=== PATIENT | female | born 1985 | race Caucasian/White ===

== ENCOUNTER 2021-02-04 16:03 | Emergency (ER) | payer MEDICAID ==
[2021-02-04 16:12] VITALS: BP 126/81
[2021-02-04] MEDS ORDERED: BENZONATATE 100 MG CAPSULE PO STA (16:38)
--- NOTE | 2021-02-04 16:43 | ED Physician Documentation ---
PD HPI DYSPNEA - Stated complaint Stated Complaint: CHEST PX/DIZZINESS - Chief complaint Chief Complaint: Resp - History obtained from History obtained from: Patient - Additional information Additional information: 35-year-old woman who is not immunized against coronavirus became sick about 6 days ago with severe muscle aches in her legs and subsequently developed a minimally productive cough and progressive shortness of breath with sharp pleuritic chest pain. She got an online nebulized solution from Dr. Alban Andres, a web search suggest this is probably nebulized hydrogen peroxide. She was exposed to Covid by some friends. Review of Systems Ten Systems: 10 systems reviewed and negative Constitutional: reports: Chills, Myalgias, Fatigue Cardiac: reports: Chest pain / pressure Respiratory: reports: Dyspnea, Cough PD PAST MEDICAL HISTORY - Present Medications Home Medications: Ambulatory Orders Medication Instructions Recorded Confirmed Benzonatate [Tessalon] 200 mg PO QID PRN #20 cap 02/04/21 - Allergies Allergies/Adverse Reactions: Allergies Allergy/AdvReac Type Severity Reaction Status Date / Time No Known Drug Allergies Allergy Verified 02/04/21 16:13 PD ED PE NORMAL - Vitals Vital signs reviewed: Yes - General General: Alert and oriented X 3, Other (Frequent coughing) - Neck Neck: Supple, no meningeal sign, No bony TTP - Cardiac Cardiac: RRR, No murmur - Respiratory Respiratory: No respiratory distress, Clear bilaterally - Abdomen Abdomen: Normal bowel sounds, Soft, Non tender - Back Back: No CVA TTP, No spinal TTP - Derm Derm: Normal color, Warm and dry - Extremities Extremities: No edema, No calf tenderness / cord - Neuro Neuro: Alert and oriented X 3, Normal speech Results - Vitals Vitals: Vital Signs - 24 hr 02/04/21 16:08 Temperature 37.1 C Heart Rate 110 H Respiratory 18 Rate Blood Pressure 126/81 H O2 Saturation 94 Oxygen O2 Source Room air - Rads (name of study) 1v cxr Radiology: EMP read contemporaneously (Bibasilar atelectasis versus infiltrate) PD MEDICAL DECISION MAKING - ED course ED course: 35-year-old woman presents with viral syndrome and productive cough, this is consistent with coronavirus and she was so advised. We are testing for same. PE is considered but given the overall evolution of her symptoms this is most consistent with a viral syndrome affecting her respiratory system. Departure - Departure Disposition: 01 Home, Self Care Clinical Impression: Viral syndrome Condition: Good Record reviewed to determine appropriate education?: Yes Instructions: ED Viral Syndrome Prescriptions: Benzonatate [Tessalon] 200 mg PO QID PRN #20 cap PRN Reason: Cough Comments: As discussed, given your symptoms it is very likely that you have coronavirus. You have a Covid test pending. You need to self quarantine until the result is done and negative. Do not leave your house. Do not get near anybody. The results should be done in 48 to 72 hours. We will call with a positive result, the fastest way to get a negative result for confirmation though is to go to the hospital website at [email or web address], click on the my [facility] tab and sign up for the patient portal. If you do test positive for Covid, you can return during business hours for consideration for antibody therapy. Someone else needs to go to the pharmacy for you, to roll picker the prescription. While there I recommend picking up a pulse oximeter and keeping an eye on your oxygen levels. If they are persistently below 90 to 92% this would mandate return for reevaluation. If any friends or family get sick and would like to have a Covid test done, but do not have signs or symptoms that would necessitate being hospitalized, there are multiple local options for Covid testing. [facility] keeps an updated list of testing and vaccination options at: [email or web address]. Forms: Activity restrictions
--- NOTE | 2021-02-04 17:17 | XRAY Report ---
PROCEDURE: Chest 1 View X-Ray INDICATIONS: cough TECHNIQUE: One view of the chest was acquired. COMPARISON: None FINDINGS: Surgical changes and devices: None. Lungs and pleura: Bibasilar atelectasis and or infiltrate accentuated by low lung volumes. Mediastinum: Mediastinal contours appear normal. Heart size is normal. Bones and chest wall: No suspicious bony lesions. Overlying soft tissues appear unremarkable. IMPRESSION: Basilar atelectasis and or infiltrate accentuated by low lung volumes Reviewed by: Parker Howell MD on 02/04/2021 4:15 PM [place] Approved by: Parker Howell MD on 02/04/2021 4:15 PM [place] Station ID: [id number]
== END 2021-02-04 17:39 | disposition home or self-care (01) ==
LOC: ED 16:03
DX: U07.1 COVID-19 (principal)
CPT/HCPCS: 71045; 87635; 99283; 99284; A9270

== ENCOUNTER 2021-02-06 17:23 | Inpatient (IN) | payer MEDICAID ==
--- NOTE | 2021-02-06 17:59 | XRAY Report ---
PROCEDURE: Chest 1 View X-Ray INDICATIONS: dyspnea TECHNIQUE: One view of the chest was acquired. COMPARISON: 02/04/2021 FINDINGS: Low lung volumes accentuate pulmonary interstitium. There is bibasilar atelectasis and or infiltrate which in combination with low lung volumes obscures the heart size appear mild vascular congestion no [place] as well. There is blunting the left costophrenic angle. IMPRESSION: Worsening bibasilar atelectasis and or infiltrate greater on the left. Low lung volumes obscures heart size and accentuates the pulmonary interstitium. Probable underlying mild vascular congestion present as well. Reviewed by: Parker Howell MD on 02/06/2021 4:58 PM [place] Approved by: Parker Howell MD on 02/06/2021 4:58 PM [place] Station ID: [id number]
[2021-02-06] MEDS ORDERED: SODIUM CHLORIDE 0.9% 1,000 ML IV STA (18:01)
[2021-02-06] MEDS ORDERED: KETOROLAC 30 MG/ML VIAL IVP STA (18:01)
[2021-02-06] MEDS ORDERED: DEXAMETHASONE 10 MG/ML VIAL IVP STA (18:01)
[2021-02-06] MEDS ORDERED: BENZONATATE 100 MG CAPSULE PO STA (18:02)
--- NOTE | 2021-02-06 18:02 | ED Physician Documentation ---
PD HPI CHEST PAIN - Stated complaint Stated Complaint: SOA,CHEST PX - Chief complaint Chief Complaint: Resp - History obtained from History obtained from: Patient - Additional information Additional information: 35-year-old woman seen by me on Friday for fairly typical Covid symptoms and a positive exposure to Covid. A outpatient swab is still pending but in the interim she did get a prescription for benzonatate which was helping and bought a pulse oximeter as recommended by us, and at home she became worsening with regard to dyspnea on exertion and noted pulse oximetry is as low as 84% on room air at home. Review of Systems Ten Systems: 10 systems reviewed and negative Constitutional: reports: Chills, Myalgias, Fatigue Nose: reports: Rhinorrhea / runny nose Cardiac: denies: Chest pain / pressure Respiratory: reports: Dyspnea, Cough PD PAST MEDICAL HISTORY - Present Medications Home Medications: Ambulatory Orders Medication Instructions Recorded Confirmed Benzonatate [Tessalon] 200 mg PO QID PRN #20 cap 02/04/21 02/06/21 - Allergies Allergies/Adverse Reactions: Allergies Allergy/AdvReac Type Severity Reaction Status Date / Time codeine Allergy Hives Verified 02/06/21 17:34 - Social History Does the pt smoke?: No Smoking Status: Never smoker PD ED PE NORMAL - Vitals Vital signs reviewed: Yes - General General: Alert and oriented X 3 - HEENT HEENT: PERRL, EOMI - Neck Neck: Supple, no meningeal sign, No bony TTP - Cardiac Cardiac: RRR, No murmur - Respiratory Respiratory: Other (Occasional bronchitic coughing, rhonchorous at the bases, modestly tachypneic) - Abdomen Abdomen: Non tender - Back Back: No CVA TTP, No spinal TTP - Derm Derm: Normal color, Warm and dry - Extremities Extremities: No edema, No calf tenderness / cord - Neuro Neuro: Alert and oriented X 3, Normal speech Results - Vitals Vitals: Vital Signs - 24 hr 02/06/21 02/06/21 02/06/21 17:36 17:53 18:23 Temperature 37.3 C Heart Rate 122 H 113 H 94 Respiratory 24 21 28 H Rate Blood Pressure 123/78 120/86 H 114/86 H O2 Saturation 89 L 91 L 93 02/06/21 02/06/21 02/06/21 19:00 19:30 20:00 Temperature Heart Rate 103 H 100 97 Respiratory 20 20 21 Rate Blood Pressure 126/65 128/92 H 122/88 H O2 Saturation 94 97 98 Oxygen O2 Source Nasal cannula Oxygen Flow Rate 4 - EKG (time done) 1802 Rate: Rate (enter#) (110) Rhythm: Sinus tachycardia [place]: Normal Intervals: Normal GA QRS: Normal Ischemia: Non specific changes - Labs Labs: Laboratory Tests 02/06/21 02/06/21 02/06/21 18:02 18:12 18:12 WBC 4.7 L RBC 4.50 Hgb 14.1 Hct 39.8 MCV 88.4 MCH 31.3 H MCHC 35.4 RDW 12.2 Plt Count 187 MPV 10.0 Neut # (Auto) 2.9 Lymph # (Auto) 1.4 L [place] # (Auto) 0.4 Eos # (Auto) 0.0 Baso # (Auto) 0.0 Absolute Nucleated RBC 0.00 Nucleated RBC % 0.0 D-Dimer 605.4 H Sodium Potassium Chloride Carbon Dioxide Anion Gap BUN Creatinine Estimated GFR (MDRD) Glucose Calcium Nasal Adenovirus (PCR) NOT DETECTED Nasal B. parapertussis DNA (PCR) NOT DETECTED Nasal Coronavir 229E PCR NOT DETECTED Nasal Coronavir HKU1 PCR NOT DETECTED Nasal Coronavir NL63 PCR NOT DETECTED Nasal Coronavir OC43 PCR NOT DETECTED Nasal Enterovir/Rhinovir PCR NOT DETECTED Nasal Influenza B PCR NOT DETECTED Nasal Influenza A PCR NOT DETECTED Nasal Parainfluen 1 PCR NOT DETECTED Nasal Parainfluen 2 PCR NOT DETECTED Nasal Parainfluen 3 PCR NOT DETECTED Nasal Parainfluen 4 PCR NOT DETECTED Nasal RSV (PCR) NOT DETECTED Nasal B.pertussis DNA PCR NOT DETECTED Nasal C.pneumoniae (PCR) NOT DETECTED Junior Human Metapneumo PCR NOT DETECTED Nasal M.pneumoniae (PCR) NOT DETECTED Nasal SARS-CoV-2 (PCR) DETECTED A 02/06/21 18:12 WBC RBC Hgb Hct MCV MCH MCHC RDW Plt Count MPV Neut # (Auto) Lymph # (Auto) [place] # (Auto) Eos # (Auto) Baso # (Auto) Absolute Nucleated RBC Nucleated RBC % D-Dimer Sodium 130 L Potassium 3.1 L Chloride 93 L Carbon Dioxide 24 Anion Gap 13.0 BUN 9 Creatinine 0.4 Estimated GFR (MDRD) 182 Glucose 248 H Calcium 8.7 Nasal Adenovirus (PCR) Nasal B. parapertussis DNA (PCR) Nasal Coronavir 229E PCR Nasal Coronavir HKU1 PCR Nasal Coronavir NL63 PCR Nasal Coronavir OC43 PCR Nasal Enterovir/Rhinovir PCR Nasal Influenza B PCR Nasal Influenza A PCR Nasal Parainfluen 1 PCR Nasal Parainfluen 2 PCR Nasal Parainfluen 3 PCR Nasal Parainfluen 4 PCR Nasal RSV (PCR) Nasal B.pertussis DNA PCR Nasal C.pneumoniae (PCR) Junior Human Metapneumo PCR Nasal M.pneumoniae (PCR) Nasal SARS-CoV-2 (PCR) - Rads (name of study) 1v cxr Radiology: EMP read contemporaneously ( chest x-ray shows worsening bibasilar atelectasis or infiltrate ) PD MEDICAL DECISION MAKING - ED course ED course: 35-year-old woman with already suspected Covid but no outpatient results yet has become hypoxic in the last couple of days and presents with mild respiratory distress and oxygen requirement. Covid positivity presumed and improved here and will be admitted for further evaluation and treatment.Spoke with Dr. Kaur for admission at 8:27 PM Departure - Departure Disposition: 66 [facility] DC/Xfer Clinical Impression: COVID-19, Hypoxemia Condition: Serious
[2021-02-06 18:19] LABS: HGB - HEMOGLOBIN 14.1 g/dL (12.0-16.0); MEAN CORPUSCULAR VOLUME 88.4 fL (81.0-99.0); MONOCYTES % (AUTO) 7.6 %; RED CELL DISTRIBUTION WIDTH 12.2 % (12.0-15.0)
[2021-02-06 18:28] LABS: CALCIUM 8.7 mg/dL (8.5-10.3); CREATININE 0.4 mg/dL (0.4-1.0); POTASSIUM 3.1 mmol/L (3.5-5.0)
[2021-02-06 18:31] LABS: BASOPHILS % (AUTO) 0.4 %; HCT - HEMATOCRIT 39.8 % (37.0-47.0); LYMPHOCYTES # (AUTO) 1.4 10^3/uL (1.5-3.5); MEAN CORPUSCULAR HEMOGLOBIN 31.3 pg (27.0-31.0); MEAN CORPUSCULAR HGB CONC 35.4 g/dL (32.0-36.0); MONOCYTES # (AUTO) 0.4 10^3/uL (0.0-1.0); NEUTROPHILS # (AUTO) 2.9 10^3/uL (1.5-6.6); NEUTROPHILS % (AUTO) 61.4 %; PLT - PLATELET COUNT 187 10^3/uL (130-450); WHITE BLOOD COUNT 4.7 x10^3/uL (4.8-10.8)
[2021-02-06] MEDS ORDERED: ENOXAPARIN 80 MG/0.8 ML SYRINGE SUBQ STA (18:46)
[2021-02-06 20:14] LABS: CORONAVIRUS 229E-RESP PCR NOT DETECTED; CORONAVIRUS HKU1-RESP PCR NOT DETECTED; CORONAVIRUS NL63-RESP PCR NOT DETECTED; CORONAVIRUS OC43-RESP PCR NOT DETECTED
[2021-02-06 20:15] LABS: B. PARAPERTUSSIS- RESP PCR PAN NOT DETECTED; B. PERTUSSIS- RESP PCR PANEL NOT DETECTED; C. PNEUMONIAE- RESP PCR PANEL NOT DETECTED; HUMAN METAPNEUMOVIRUS NOT DETECTED; INFLUENZA A- RESP PCR PANEL NOT DETECTED; INFLUENZA B - RESP PCR PANEL NOT DETECTED; M. PNEUMONIAE- RESP PCR PANEL NOT DETECTED; PARAINFLUENZA VIRUS 1 NOT DETECTED; PARAINFLUENZA VIRUS 2 NOT DETECTED; PARAINFLUENZA VIRUS 3 NOT DETECTED; PARAINFLUENZA VIRUS 4 NOT DETECTED; RHINOVIRUS/ENTEROVIRUS NOT DETECTED; RSV- RESP PCR PANEL NOT DETECTED; SARS-CoV-2 -RESP PCR PANEL DETECTED
[2021-02-06] MEDS ORDERED: ACETAMINOPHEN 325 MG TABLET PO PRN (20:49)
[2021-02-06] MEDS ORDERED: ONDANSETRON 4 MG/2 ML VIAL IVP PRN (20:49)
[2021-02-06 21:15] LABS: ALBUMIN 3.7 g/dL (3.2-5.5); BILIRUBIN,DIRECT 0.2 mg/dL (0.1-0.5); BILIRUBIN,TOTAL 0.9 mg/dL (0.2-1.0); TOTAL PROTEIN 7.2 g/dL (6.7-8.2)
--- NOTE | 2021-02-06 21:40 | HISTORY & PHYSICAL EXAMINATION ---
Chief Complaint - Chief Complaint Chief Complaint: SOB, O2 desaturation History of Present Illness - Admitted From Admitted From:: ED - History Obtained From History obtained from: ED provider, chart review and the patient - History of Present Illness HPI Comment/Other: This is a 35-year-old female with negative past medical history, she is unvaccinated for COVID. She had just decided to get covid vaccinated whenshe became exposed to Covid through a friend or someone at [employer]. She started to develop Covid symptoms over a week ago of myalgias, weakness and fatigue. She came to the ED 2 days ago with new shortness of breath and a cough as well as severe myalgias diffusely. She had a send out Covid swab done and was discharged home with a prescription for Tessalon Perles and instructions for isolation, which she did. Her parents are vaccinated and her mother was her caregiver. She did obtain an oximeter as was recommended and noticed today that her O2 sats became decreased to the 84% range. She came to the ED today with worsening cough, and new diarrhea. She was tachypneic. Chest x-ray shows bilateral fluffy infiltrates consistent with Covid pneumonia. Her oxygen saturation here is 88 to 89% on room air and she has been started on supplemental oxygen. She is being admitted to the Hospitalist service. 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 She does not smoke cigarettes, does not drink alcohol, does not use recreational drugs. - Substance History Use: Uses substance without health or social issues: NONE - POLST Patient has POLST: No Meds/Allgy - Home Medications Home Medications: Ambulatory Orders Medication Instructions Recorded Confirmed Benzonatate [Tessalon] 200 mg PO QID PRN #20 cap 02/04/21 02/06/21 - Allergies Allergies/Adverse Reactions: Allergies Allergy/AdvReac Type Severity Reaction Status Date / Time codeine Allergy Hives Verified 02/06/21 17:34 Review of Systems - Constitutional Constitutional: reports: Fatigue, Poor appetite - Respiratory Respiratory: reports: Cough, SOB with exertion - Gastrointestinal Gastrointestinal: reports: Diarrhea, Poor appetite - Musculoskeletal Musculoskeletal: reports: Muscle pain - All Other Systems All Other Systems: reports: Reviewed and negative Exam - Vital Signs Vital Signs: Vital Signs x48h Temp Pulse Resp BP Pulse Ox 02/06/21 21:30 97 21 123/93 H 92 02/06/21 21:00 97 27 H 112/83 H 99 02/06/21 20:30 99 23 117/86 H 92 02/06/21 20:00 97 21 122/88 H 98 02/06/21 19:30 100 20 128/92 H 97 02/06/21 19:00 103 H 20 126/65 94 02/06/21 18:23 94 28 H 114/86 H 93 02/06/21 17:53 113 H 21 120/86 H 91 L 02/06/21 17:36 37.3 C 122 H 24 123/78 89 L - Physical Exam General Appearance: positive: No acute distress, Alert, Other (wearing O2 per n.c.) Eyes Bilateral: positive: Normal inspection, EOMI ENT: positive: ENT inspection nml, No signs of dehydration Neck: positive: Nml inspection Respiratory: positive: Rhonchi (up 3/4 bilaterally) Cardiovascular: positive: Regular rate & rhythm, No murmur, Other (Distant heart sounds, large pendulous breasts) Abdomen: positive: Non-tender, Other (Hypoactive bowel sounds) Skin: positive: Warm, Dry Extremities: positive: Non-tender, No pedal edema Neurologic/Psychiatric: positive: Oriented x3 (Non-focal) Conclusion/Plan - Problem List (1) Acute respiratory failure with hypoxia Conclusion/Plan: Continue with supplemental oxygen keeping sats greater than 90%. Treat the underlying problem which appears to be Covid pneumonia (2) COVID-19 Conclusion/Plan: As per (+) PCR test, and she is neutropenic. Myalgias and fatigue were her initial symptoms starting 01/29/21, she said, then she developed a cough and shortness of breath and today diarrhea started. Will order Remdesivir, Decadron, Eliquis (therapeutic dose, as per latest recommendatios), Tessalon Perles as needed, Imodium as needed and order a bland diet. (3) Pneumonia due to COVID-19 virus Conclusion/Plan: Will start Remdesivir for 5-day course. Will continue with iv Decadron for up to a 10-day course. We will treat symptomatically with Mucinex and order IS Isolation ordered. Follow CBC daily (4) Hyponatremia Conclusion/Plan: This is most likely hypovolemic hyponatremia given her viral syndrome and poor appetite. Begin gentle IV saline hydration. Follow BMP daily (5) Hypokalemia Conclusion/Plan: Replace. Follow BMP daily (6) Obesity (BMI 30-39.9) Conclusion/Plan: Obesity has been documented as a risk factor for poor Covid outcomes - Lab Results Fish Bones: 02/06/21 18:12 02/06/21 18:12
[2021-02-06] MEDS: APIXABAN 5 MG TABLET PO SCH (22:16)
[2021-02-06] MEDS ORDERED: POTASSIUM CHLORIDE 20 MEQ TABLET PO ONE (22:31)
[2021-02-06] MEDS: BENZONATATE 100 MG CAPSULE PO PRN (22:33)
[2021-02-06] MEDS ORDERED: SODIUM CHLORIDE 0.9% 1,000 ML IV SCH (23:00)
[2021-02-06] MEDS: SODIUM CHLORIDE FLUSH 0.9% 10 ML SYRINGE IVP PRN (23:00)
[2021-02-06] MEDS ORDERED: NS W/20 MEQ KCL 1,000 ML IV SCH (23:00)
[2021-02-07] MEDS: SODIUM CHLORIDE FLUSH 0.9% 10 ML SYRINGE IVP SCH ×3 (03:21→17:34)
[2021-02-07] MEDS: BENZONATATE 100 MG CAPSULE PO PRN ×2 (05:13→17:34)
[2021-02-07] MEDS: PANTOPRAZOLE 40 MG TABLET PO SCH (06:32)
[2021-02-07 06:34] LABS: BASOPHILS % (AUTO) 0.2 %; HCT - HEMATOCRIT 39.3 % (37.0-47.0); HGB - HEMOGLOBIN 13.7 g/dL (12.0-16.0); LYMPHOCYTES % (AUTO) 26.4 %; MEAN CORPUSCULAR HEMOGLOBIN 30.9 pg (27.0-31.0); MEAN CORPUSCULAR HGB CONC 34.9 g/dL (32.0-36.0); MEAN CORPUSCULAR VOLUME 88.7 fL (81.0-99.0); MEAN PLATELET VOLUME 9.9 fL (7.9-10.8); MONOCYTES % (AUTO) 6.5 %; NEUTROPHILS % (AUTO) 66.2 %; PLT - PLATELET COUNT 208 10^3/uL (130-450); RED BLOOD COUNT 4.43 10^6/uL (4.20-5.40); RED CELL DISTRIBUTION WIDTH 12.3 % (12.0-15.0); WHITE BLOOD COUNT 4.6 x10^3/uL (4.8-10.8)
[2021-02-07 06:41] LABS: ABNORMAL LYMPHS % (MANUAL) 0 %
[2021-02-07 06:46] LABS: CALCIUM 8.4 mg/dL (8.5-10.3); CREATININE 0.5 mg/dL (0.4-1.0); MAGNESIUM 2.1 mg/dL (1.7-2.8)
[2021-02-07 07:38] LABS: BAND NEUTROPHILS % (MANUAL) 6 %; LYMPHOCYTES # (MANUAL) 1.2 10^3/uL (1.5-3.5); LYMPHOCYTES % (MANUAL) 26 %; MONOCYTES # (MANUAL) 0.1 10^3/uL (0.0-1.0); NEUTROPHILS # (MANUAL) 3.3 10^3/uL (1.5-6.6)
[2021-02-07 07:39] LABS: DIFFERENTIAL COMMENT MANUAL DIFFERENTIAL; PLATELET ESTIMATE, MANUAL NORMAL (130-450,000) (NORMAL); PLATELET MORPHOLOGY NORMAL APPEARANCE (NORMAL); RBC MORPHOLOGY (MULTIPLE) NORMAL APPEARANCE (NORMAL); WBC MORPHOLOGY (MULTIPLE) NORMAL APPEARANCE (NORMAL)
[2021-02-07] MEDS ORDERED: LOPERAMIDE 2 MG CAPSULE PO PRN (09:00)
[2021-02-07] MEDS: DEXAMETHASONE 4 MG/ML VIAL IVP SCH (09:30)
[2021-02-07] MEDS: guaiFENesin 600 MG TABLET PO SCH ×2 (09:30→21:17)
[2021-02-07] MEDS: APIXABAN 5 MG TABLET PO SCH ×2 (09:30→21:17)
[2021-02-07] MEDS ORDERED: REMDESIVIR 100MG VIAL 200 MG in SODIUM CHLORIDE 0.9% 250 ML IV ONE (09:30)
--- NOTE | 2021-02-07 10:36 | PHARMACY PROGRESS NOTE ---
- Best Possible Medication History Admit Date and Time: 02/06/212041 Processed by: Nursing Medication History completed: Yes Med list confirmed by nursing As the person ultimately responsible for medication therapy, providers are able to order a medication from an existing home medication list in [facility] via the "Reconcile Routine" prior to Confirmation of that medication by it support specialist. Such practice is discouraged except when the physician, in their clinical judgment, deems that a medical need exists for a medication without regard to previous use.
--- NOTE | 2021-02-07 11:39 | PROVIDER PROGRESS NOTE ---
Assessment/Plan - Problem List (1) Acute respiratory failure with hypoxia Assessment/Plan: 02/07 after Patient needed HHFNC 35, pt report she feel much better. pt has no acute respiratory distress now. Call pharmacy to have Remdesivir for pt, continue Decadron, Eliquis, continue HHFNC, supplement of O2 for pt. (2) Pneumonia due to COVID-19 virus Conclusion/Plan: pt has positive Covid test, with acute Respiratory failure with hypoxia, add Remdesivir for pt, continue Decadron, Eliquis, continue HHFNC and supplement of O2 for pt. (3) Hyperglycemia induced by steroid Conclusion/Plan: glucose is 295, pt has no hx of diabetes, it is likely caused by Decadron, will add slide scale, glucose check, pt has hx of obesity, will check A1C as well. (4) Hyponatremia Conclusion/Plan: Na is 132, improved, Follow BMP daily (5) Hypokalemia Conclusion/Plan: resolved (6) Obesity (BMI 30-39.9) Conclusion/Plan: Obesity has been documented as a risk factor for poor Covid outcomes, also check A1C - Current Meds Current Meds: Current Medications Generic Name Dose Route Start Last Admin Trade Name Freq PRN Reason Stop Dose Admin Acetaminophen 650 mg 02/06/21 20:49 02/07/21 06:31 Acetaminophen 325 Mg Tablet PO 650 mg Q4HR PRN Administration Pain or Fever > 38C (100.4F) Benzonatate 200 mg 02/06/21 21:31 02/07/21 05:13 Benzonatate 100 Mg Capsule PO 200 mg QID PRN Administration Cough Dexamethasone 6 mg 02/07/21 09:00 02/07/21 09:30 Dexamethasone 4 Mg/Ml Vial IVP 6 mg DAILY AP Administration Guaifenesin 600 mg 02/07/21 09:00 02/07/21 09:30 Guaifenesin 600 Mg Tablet PO 600 mg BID AP Administration Pantoprazole Sodium 40 mg 02/07/21 07:00 02/07/21 06:32 Pantoprazole 40 Mg Tablet PO 40 mg QDAC AP Administration Sodium Chloride 10 ml 02/06/21 20:49 02/06/21 23:00 Sodium Chloride Flush 0.9% 10 Ml Syringe IVP 10 ml PRN PRN Administration NEEDED PER PROVIDER ORDERS Sodium Chloride 10 ml 02/07/21 01:00 02/07/21 09:31 Sodium Chloride Flush 0.9% 10 Ml Syringe IVP 10 ml 0100,0900,1700 [facility] Administration - Lab Result Fish Bone Diagrams: 02/07/21 06:12 02/07/21 06:12 - Additional Planning My Orders: My Active Orders 02/07/21 Pharmacy Consult [CONS] Routine 02/07/21 11:32 Blood Glucose Checks - Eating [RC] 0800,1200,1700,2100 Initiate Hypoglycemia Protocol [RC] .protocol 02/07/21 12:00 Insulin Aspart [NovoLOG] 2 - 10 unit SUBQ 0800,1200,1700,2100 02/08/21 05:00 HEMOGLOBIN A1c% [CHEM] DAILYLAB 02/08/21 09:00 Remdesivir 100Mg Vial [Veklury] 100 mg Sodium Chloride 0.9% 100Ml [Normal Saline 0.9% 100Ml] 100 ml IV DAILY Subjective - Subjective Patient Reports: Feeling Better, Resting Comfortably Objective Vital Signs: Vital Signs - 24 hr 02/06/21 02/06/21 02/06/21 17:36 17:53 18:23 Temperature 37.3 C Heart Rate 122 H 113 H 94 Heart Rate [ Brachial] Respiratory 24 21 28 H Rate Blood Pressure 123/78 120/86 H 114/86 H Blood Pressure [Left Brachial artery] O2 Saturation 89 L 91 L 93 02/06/21 02/06/21 02/06/21 19:00 19:30 20:00 Temperature Heart Rate 103 H 100 97 Heart Rate [ Brachial] Respiratory 20 20 21 Rate Blood Pressure 126/65 128/92 H 122/88 H Blood Pressure [Left Brachial artery] O2 Saturation 94 97 98 02/06/21 02/06/21 02/06/21 20:30 21:00 21:30 Temperature Heart Rate 99 97 97 Heart Rate [ Brachial] Respiratory 23 27 H 21 Rate Blood Pressure 117/86 H 112/83 H 123/93 H Blood Pressure [Left Brachial artery] O2 Saturation 92 99 92 02/06/21 02/07/21 02/07/21 21:57 00:28 01:04 Temperature 36.6 C 37.4 C Heart Rate 96 Heart Rate [ 99 95 Brachial] Respiratory 20 18 18 Rate Blood Pressure Blood Pressure 110/71 114/78 [Left Brachial artery] O2 Saturation 91 L 90 L 92 02/07/21 02/07/21 05:00 08:46 Temperature 36.8 C 37.1 C Heart Rate Heart Rate [ 92 95 Brachial] Respiratory 24 18 Rate Blood Pressure Blood Pressure 120/80 110/79 [Left Brachial artery] O2 Saturation 89 L 92 Oxygen O2 Source HHFNC Oxygen Flow Rate 4 I&O (Last 24 Hrs): Intake and Output Totals x24h 02/05/21 02/06/21 02/07/21 23:59 23:59 23:59 Intake Total 1000 500 Balance 1000 500 General: Alert, Oriented x3, Cooperative, No acute distress HEENT: Atraumatic, PERRLA Neck: Supple Lymphatic: no adenopathy Neuro: Alert, Non Focal, Oriented Times 3 Cardiovascular: Regular rate, Normal S1, Normal S2 Respiratory: Chest non-tender, No respiratory distress Abdomen: Normal bowel sounds, Soft, No tenderness Extremities: Normal pulses - Results Results: Laboratory Results WBC 4.6 x10^3/uL (4.8-10.8) L 02/07/21 06:12 RBC 4.43 10^6/uL (4.20-5.40) 02/07/21 06:12 Hgb 13.7 g/dL (12.0-16.0) 02/07/21 06:12 Hct 39.3 % (37.0-47.0) 02/07/21 06:12 MCV 88.7 fL (81.0-99.0) 02/07/21 06:12 MCH 30.9 pg (27.0-31.0) 02/07/21 06:12 MCHC 34.9 g/dL (32.0-36.0) 02/07/21 06:12 RDW 12.3 % (12.0-15.0) 02/07/21 06:12 Plt Count 208 10^3/uL (130-450) 02/07/21 06:12 MPV 9.9 fL (7.9-10.8) 02/07/21 06:12 Neut # (Auto) Not Reportable 02/07/21 06:12 Lymph # (Auto) Not Reportable 02/07/21 06:12 [place] # (Auto) Not Reportable 02/07/21 06:12 Eos # (Auto) Not Reportable 02/07/21 06:12 Baso # (Auto) Not Reportable 02/07/21 06:12 Absolute Nucleated RBC Not Reportable 02/07/21 06:12 Total Counted 100 02/07/21 06:12 Band Neuts % (Manual) 6 % (0-10) 02/07/21 06:12 Abnorm Lymph % (Manual) 0 % 02/07/21 06:12 Nucleated RBC % Not Reportable 02/07/21 06:12 Neutrophils # (Manual) 3.3 10^3/uL (1.5-6.6) 02/07/21 06:12 Lymphocytes # (Manual) 1.2 10^3/uL (1.5-3.5) L 02/07/21 06:12 Monocytes # (Manual) 0.1 10^3/uL (0.0-1.0) 02/07/21 06:12 Eosinophils # (Manual) 0.0 10^3/uL (0-0.7) 02/07/21 06:12 Basophils # (Manual) 0.0 10^3/uL (0-0.1) 02/07/21 06:12 Differential Comment MANUAL DIFFERENTIAL 02/07/21 06:12 WBC Morphology NORMAL APPEARANCE (NORMAL) 02/07/21 06:12 Platelet Estimate NORMAL (130-450,000) (NORMAL) 02/07/21 06:12 Platelet Morphology NORMAL APPEARANCE (NORMAL) 02/07/21 06:12 RBC Morph Micro Appear NORMAL APPEARANCE (NORMAL) 02/07/21 06:12 D-Dimer 605.4 ng/mL (200.0-255.0) H 02/06/21 18:12 Sodium 132 mmol/L (135-145) L 02/07/21 06:12 Potassium 4.0 mmol/L (3.5-5.0) 02/07/21 06:12 Chloride 97 mmol/L (101-111) L 02/07/21 06:12 Carbon Dioxide 22 mmol/L (21-32) 02/07/21 06:12 Anion Gap 13.0 (6-13) 02/07/21 06:12 BUN 17 mg/dL (6-20) 02/07/21 06:12 Creatinine 0.5 mg/dL (0.4-1.0) 02/07/21 06:12 Estimated GFR (MDRD) 140 (>89) 02/07/21 06:12 Glucose 295 mg/dL (70-100) H 02/07/21 06:12 Calcium 8.4 mg/dL (8.5-10.3) L 02/07/21 06:12 Magnesium 2.1 mg/dL (1.7-2.8) 02/07/21 06:12 Total Bilirubin 0.9 mg/dL (0.2-1.0) 02/06/21 18:12 Direct Bilirubin 0.2 mg/dL (0.1-0.5) 02/06/21 18:12 AST 54 IU/L (10-42) H 02/06/21 18:12 ALT 50 IU/L (10-60) 02/06/21 18:12 Alkaline Phosphatase 59 IU/L (42-121) 02/06/21 18:12 Total Protein 7.2 g/dL (6.7-8.2) 02/06/21 18:12 Albumin 3.7 g/dL (3.2-5.5) 02/06/21 18:12 Globulin 3.5 g/dL (2.1-4.2) 02/06/21 18:12 Nasal Adenovirus (PCR) NOT DETECTED 02/06/21 18:02 Nasal B. parapertussis DNA (PCR) NOT DETECTED 02/06/21 18:02 Nasal Coronavir 229E PCR NOT DETECTED 02/06/21 18:02 Nasal Coronavir HKU1 PCR NOT DETECTED 02/06/21 18:02 Nasal Coronavir NL63 PCR NOT DETECTED 02/06/21 18:02 Nasal Coronavir OC43 PCR NOT DETECTED 02/06/21 18:02 Nasal Enterovir/Rhinovir PCR NOT DETECTED 02/06/21 18:02 Nasal Influenza B PCR NOT DETECTED 02/06/21 18:02 Nasal Influenza A PCR NOT DETECTED 02/06/21 18:02 Nasal Parainfluen 1 PCR NOT DETECTED 02/06/21 18:02 Nasal Parainfluen 2 PCR NOT DETECTED 02/06/21 18:02 Nasal Parainfluen 3 PCR NOT DETECTED 02/06/21 18:02 Nasal Parainfluen 4 PCR NOT DETECTED 02/06/21 18:02 Nasal RSV (PCR) NOT DETECTED 02/06/21 18:02 Nasal B.pertussis DNA PCR NOT DETECTED 02/06/21 18:02 Nasal C.pneumoniae (PCR) NOT DETECTED 02/06/21 18:02 Junior Human Metapneumo PCR NOT DETECTED 02/06/21 18:02 Nasal M.pneumoniae (PCR) NOT DETECTED 02/06/21 18:02 Nasal SARS-CoV-2 (PCR) DETECTED A 02/06/21 18:02 ABX Reporting Has patient been on IV antibiotics over the past 48 hours?: Yes Current Medications - Current Medications Current Medications: Active Medications Acetaminophen (Acetaminophen 325 Mg Tablet) 650 mg PO Q4HR PRN PRN Reason: Pain or Fever > 38C (100.4F) Last Admin: 02/07/21 06:31 Dose: 650 mg Documented by: Apixaban (Apixaban 5 Mg Tablet) 5 mg PO BID [facility] Benzonatate (Benzonatate 100 Mg Capsule) 200 mg PO QID PRN PRN Reason: Cough Last Admin: 02/07/21 05:13 Dose: 200 mg Documented by: Dexamethasone (Dexamethasone 4 Mg/Ml Vial) 6 mg IVP DAILY [facility] Last Admin: 02/07/21 09:30 Dose: 6 mg Documented by: Guaifenesin (Guaifenesin 600 Mg Tablet) 600 mg PO BID [facility] Last Admin: 02/07/21 09:30 Dose: 600 mg Documented by: Remdesivir 100 mg/ Sodium (Chloride) 100 mls @ 200 mls/hr IV DAILY [facility] Stop: 02/11/21 09:29 Insulin Aspart (Insulin Aspart 300 Unit/3 Ml Pen) 2 - 10 unit SUBQ 0800,1200,1700,2100 [facility]; Protocol Loperamide HCl (Loperamide 2 Mg Capsule) 2 mg PO BID PRN PRN Reason: Diarrhea Ondansetron HCl (Ondansetron 4 Mg/2 Ml Vial) 4 mg IVP Q6HR PRN PRN Reason: Nausea / Vomiting Pantoprazole Sodium (Pantoprazole 40 Mg Tablet) 40 mg PO QDAC [facility] Last Admin: 02/07/21 06:32 Dose: 40 mg Documented by: Sodium Chloride (Sodium Chloride Flush 0.9% 10 Ml Syringe) 10 ml IVP PRN PRN PRN Reason: NEEDED PER PROVIDER ORDERS Last Admin: 02/06/21 23:00 Dose: 10 ml Documented by: Sodium Chloride (Sodium Chloride Flush 0.9% 10 Ml Syringe) 10 ml IVP 0100,0900,1700 [facility] Last Admin: 02/07/21 09:31 Dose: 10 ml Documented by:
[2021-02-07] MEDS: INSULIN ASPART 300 UNIT/3 ML PEN SUBQ SCH ×3 (12:37→21:16)
[2021-02-08] MEDS: BENZONATATE 100 MG CAPSULE PO PRN (00:16)
[2021-02-08] MEDS: SODIUM CHLORIDE FLUSH 0.9% 10 ML SYRINGE IVP SCH ×3 (00:16→17:15)
[2021-02-08 06:19] LABS: BASOPHILS % (AUTO) 0.1 %; EOSINOPHILS # (AUTO) 0.2 10^3/uL (0.0-0.7); EOSINOPHILS % (AUTO) 2.3 %; HCT - HEMATOCRIT 36.6 % (37.0-47.0); HGB - HEMOGLOBIN 12.7 g/dL (12.0-16.0); LYMPHOCYTES # (AUTO) 1.8 10^3/uL (1.5-3.5); LYMPHOCYTES % (AUTO) 25.6 %; MEAN CORPUSCULAR HGB CONC 34.7 g/dL (32.0-36.0); MEAN CORPUSCULAR VOLUME 89.3 fL (81.0-99.0); MEAN PLATELET VOLUME 9.7 fL (7.9-10.8); MONOCYTES # (AUTO) 0.5 10^3/uL (0.0-1.0); MONOCYTES % (AUTO) 7.3 %; NEUTROPHILS # (AUTO) 4.4 10^3/uL (1.5-6.6); NEUTROPHILS % (AUTO) 63.5 %; PLT - PLATELET COUNT 257 10^3/uL (130-450); RED CELL DISTRIBUTION WIDTH 12.3 % (12.0-15.0); WHITE BLOOD COUNT 6.9 x10^3/uL (4.8-10.8)
[2021-02-08] MEDS: PANTOPRAZOLE 40 MG TABLET PO SCH (06:19)
[2021-02-08 06:28] LABS: CALCIUM 8.3 mg/dL (8.5-10.3); CREATININE 0.4 mg/dL (0.4-1.0); MAGNESIUM 2.2 mg/dL (1.7-2.8); POTASSIUM 3.9 mmol/L (3.5-5.0)
[2021-02-08] MEDS: REMDESIVIR 100MG VIAL 100 MG in SODIUM CHLORIDE 0.9% 100ML 100 ML IV SCH (08:54)
[2021-02-08] MEDS: INSULIN ASPART 300 UNIT/3 ML PEN SUBQ SCH ×4 (08:56→21:27)
[2021-02-08] MEDS: DEXAMETHASONE 4 MG/ML VIAL IVP SCH (09:05)
[2021-02-08] MEDS: guaiFENesin 600 MG TABLET PO SCH ×2 (09:10→21:25)
[2021-02-08] MEDS: CHOLECALCIFEROL 25 MCG TABLET PO SCH (09:10)
[2021-02-08] MEDS: APIXABAN 5 MG TABLET PO SCH ×2 (09:10→21:25)
[2021-02-08 09:43] LABS: ESTIMATED AVERAGE GLUCOSE 237 mg/dL (70-100); HEMOGLOBIN A1c% 9.9 % (4.27-6.07)
--- NOTE | 2021-02-08 14:37 | PROVIDER PROGRESS NOTE ---
Assessment/Plan - Problem List (1) Acute respiratory failure with hypoxia Assessment/Plan: 02/08 stable, pt feel comfortable, no acute respiratory distress. pt had 93% O2 sats on 40 liter of HHFNC with 60% FiO2. continue the setting for HHFNC, continue Remdesivir, Decadron, Eliquis 02/07 after Patient needed HHFNC 35, pt report she feel much better. pt has no acute respiratory distress now. Call pharmacy to have Remdesivir for pt, continue Decadron, Eliquis, continue HHFNC, supplement of O2 for pt. (2) Pneumonia due to COVID-19 virus Conclusion/Plan: pt has positive Covid test, with acute Respiratory failure with hypoxia, add Remdesivir for pt, continue Decadron, Eliquis, continue HHFNC and supplement of O2 for pt. (3) diabetes with Hyperglycemia induced by steroid Conclusion/Plan: 02/08, unfortunately pt's A1C is 9.9, she was unknown she had diabetes. Now she is diabetes. pt still has hyperglycemia. increase Novolog for slide scale, add lantus on night, continue glucose check, slide scale, hypoglycemia protocol. glucose is 295, pt has no hx of diabetes, it is likely caused by Decadron, will add slide scale, glucose check, pt has hx of obesity, will check A1C as well. (4) Hyponatremia Conclusion/Plan: Na is 132, improved, Follow BMP daily (5) Hypokalemia Conclusion/Plan: resolved (6) Obesity (BMI 30-39.9) Conclusion/Plan: Obesity has been documented as a risk factor for poor Covid outcomes, also check A1C - Current Meds Current Meds: Current Medications Generic Name Dose Route Start Last Admin Trade Name Freq PRN Reason Stop Dose Admin Apixaban 5 mg 02/07/21 21:00 02/08/21 09:10 Apixaban 5 Mg Tablet PO 5 mg BID AP Administration Benzonatate 200 mg 02/06/21 21:31 02/08/21 00:16 Benzonatate 100 Mg Capsule PO 200 mg QID PRN Administration Cough Cholecalciferol 50 mcg 02/08/21 09:00 02/08/21 09:10 Cholecalciferol 25 Mcg Tablet PO 50 mcg DAILY AP Administration Dexamethasone 6 mg 02/07/21 09:00 02/08/21 09:05 Dexamethasone 4 Mg/Ml Vial IVP 6 mg DAILY AP Administration Guaifenesin 600 mg 02/07/21 09:00 02/08/21 09:10 Guaifenesin 600 Mg Tablet PO 600 mg BID AP Administration Remdesivir 100 mg/ Sodium 100 mls @ 200 mls/hr 02/08/21 09:00 02/08/21 10:06 Chloride IV 02/11/21 09:29 Infused DAILY AP Infusion Insulin Aspart 3 - 11 unit 02/08/21 08:00 02/08/21 11:54 Insulin Aspart 300 Unit/3 Ml Pen SUBQ 11 unit 0800,1200,1700,2100 AP Administration Protocol Loperamide HCl 2 mg 02/07/21 09:00 02/07/21 17:34 Loperamide 2 Mg Capsule PO 2 mg BID PRN Administration Diarrhea Pantoprazole Sodium 40 mg 02/07/21 07:00 02/08/21 06:19 Pantoprazole 40 Mg Tablet PO 40 mg QDAC AP Administration Sodium Chloride 10 ml 02/06/21 20:49 02/06/21 23:00 Sodium Chloride Flush 0.9% 10 Ml Syringe IVP 10 ml PRN PRN Administration NEEDED PER PROVIDER ORDERS Sodium Chloride 10 ml 02/07/21 01:00 02/08/21 09:10 Sodium Chloride Flush 0.9% 10 Ml Syringe IVP 10 ml 0100,0900,1700 AP Administration - Lab Result Fish Bone Diagrams: 02/08/21 06:10 02/08/21 06:10 - Additional Planning My Orders: My Active Orders 02/07/21 15:30 Ketorolac [Toradol] 10 mg PO Q6HR PRN 02/07/21 Dinner Regular Diet [DIET] 02/08/21 09:00 Cholecalciferol [Vitamin D3] 50 mcg PO DAILY Remdesivir 100Mg Vial [Veklury] 100 mg Sodium Chloride 0.9% 100Ml [Normal Saline 0.9% 100Ml] 100 ml IV DAILY Subjective - Subjective Patient Reports: Feeling Better, Resting Comfortably Objective Vital Signs: Vital Signs - 24 hr 02/07/21 02/07/21 02/08/21 16:34 21:00 00:10 Temperature 37.1 C 37.4 C 37.3 C Heart Rate [ 86 99 89 Brachial] Respiratory 25 H 22 18 Rate Blood Pressure 120/81 H 115/85 H 119/77 [Left Brachial artery] O2 Saturation 92 91 L 90 L 02/08/21 02/08/21 02/08/21 00:25 06:12 08:49 Temperature 37.1 C 36.7 C Heart Rate [ 85 73 Brachial] Respiratory 20 20 Rate Blood Pressure 104/71 104/69 [Left Brachial artery] O2 Saturation 92 92 94 02/08/21 12:31 Temperature 36.9 C Heart Rate [ 77 Brachial] Respiratory 20 Rate Blood Pressure 104/65 [Left Brachial artery] O2 Saturation 93 Oxygen O2 Source HHFNC Oxygen Flow Rate 4 I&O (Last 24 Hrs): Intake and Output Totals x24h 02/06/21 02/07/21 02/08/21 23:59 23:59 23:59 Intake Total 1000 2270 450 Balance 1000 2270 450 General: Alert, Oriented x3, Cooperative, No acute distress HEENT: Atraumatic Neck: Supple Lymphatic: no adenopathy Neuro: Alert, Non Focal, Oriented Times 3 Cardiovascular: Regular rate, Normal S1, Normal S2 Respiratory: Chest non-tender, No respiratory distress Abdomen: Normal bowel sounds, Soft Extremities: Normal pulses - Results Results: Laboratory Results WBC 6.9 x10^3/uL (4.8-10.8) 02/08/21 06:10 RBC 4.10 10^6/uL (4.20-5.40) L 02/08/21 06:10 Hgb 12.7 g/dL (12.0-16.0) 02/08/21 06:10 Hct 36.6 % (37.0-47.0) L 02/08/21 06:10 MCV 89.3 fL (81.0-99.0) 02/08/21 06:10 MCH 31.0 pg (27.0-31.0) 02/08/21 06:10 MCHC 34.7 g/dL (32.0-36.0) 02/08/21 06:10 RDW 12.3 % (12.0-15.0) 02/08/21 06:10 Plt Count 257 10^3/uL (130-450) 02/08/21 06:10 MPV 9.7 fL (7.9-10.8) 02/08/21 06:10 Neut # (Auto) 4.4 10^3/uL (1.5-6.6) 02/08/21 06:10 Lymph # (Auto) 1.8 10^3/uL (1.5-3.5) 02/08/21 06:10 [place] # (Auto) 0.5 10^3/uL (0.0-1.0) 02/08/21 06:10 Eos # (Auto) 0.2 10^3/uL (0.0-0.7) 02/08/21 06:10 Baso # (Auto) 0.0 10^3/uL (0.0-0.1) 02/08/21 06:10 Absolute Nucleated RBC 0.00 x10^3/uL 02/08/21 06:10 Total Counted 100 02/07/21 06:12 Band Neuts % (Manual) 6 % (0-10) 02/07/21 06:12 Abnorm Lymph % (Manual) 0 % 02/07/21 06:12 Nucleated RBC % 0.0 /100WBC 02/08/21 06:10 Neutrophils # (Manual) 3.3 10^3/uL (1.5-6.6) 02/07/21 06:12 Lymphocytes # (Manual) 1.2 10^3/uL (1.5-3.5) L 02/07/21 06:12 Monocytes # (Manual) 0.1 10^3/uL (0.0-1.0) 02/07/21 06:12 Eosinophils # (Manual) 0.0 10^3/uL (0-0.7) 02/07/21 06:12 Basophils # (Manual) 0.0 10^3/uL (0-0.1) 02/07/21 06:12 Differential Comment MANUAL DIFFERENTIAL 02/07/21 06:12 WBC Morphology NORMAL APPEARANCE (NORMAL) 02/07/21 06:12 Platelet Estimate NORMAL (130-450,000) (NORMAL) 02/07/21 06:12 Platelet Morphology NORMAL APPEARANCE (NORMAL) 02/07/21 06:12 RBC Morph Micro Appear NORMAL APPEARANCE (NORMAL) 02/07/21 06:12 D-Dimer 605.4 ng/mL (200.0-255.0) H 02/06/21 18:12 Sodium 134 mmol/L (135-145) L 02/08/21 06:10 Potassium 3.9 mmol/L (3.5-5.0) 02/08/21 06:10 Chloride 99 mmol/L (101-111) L 02/08/21 06:10 Carbon Dioxide 24 mmol/L (21-32) 02/08/21 06:10 Anion Gap 11.0 (6-13) 02/08/21 06:10 BUN 16 mg/dL (6-20) 02/08/21 06:10 Creatinine 0.4 mg/dL (0.4-1.0) 02/08/21 06:10 Estimated GFR (MDRD) 182 (>89) 02/08/21 06:10 Glucose 260 mg/dL (70-100) H 02/08/21 06:10 POC Whole Bld Glucose 334 mg/dL (70 - 100) H 02/08/21 11:38 Estimat Average Glucose 237 mg/dL (70-100) H 02/08/21 06:10 Hemoglobin A1c % 9.9 % (4.27-6.07) H 02/08/21 06:10 Calcium 8.3 mg/dL (8.5-10.3) L 02/08/21 06:10 Magnesium 2.2 mg/dL (1.7-2.8) 02/08/21 06:10 Total Bilirubin 0.9 mg/dL (0.2-1.0) 02/06/21 18:12 Direct Bilirubin 0.2 mg/dL (0.1-0.5) 02/06/21 18:12 AST 54 IU/L (10-42) H 02/06/21 18:12 ALT 50 IU/L (10-60) 02/06/21 18:12 Alkaline Phosphatase 59 IU/L (42-121) 02/06/21 18:12 Total Protein 7.2 g/dL (6.7-8.2) 02/06/21 18:12 Albumin 3.7 g/dL (3.2-5.5) 02/06/21 18:12 Globulin 3.5 g/dL (2.1-4.2) 02/06/21 18:12 25-OH Vitamin D Total 45 ng/mL (30-100) 02/07/21 15:10 Nasal Adenovirus (PCR) NOT DETECTED 02/06/21 18:02 Nasal B. parapertussis DNA (PCR) NOT DETECTED 02/06/21 18:02 Nasal Coronavir 229E PCR NOT DETECTED 02/06/21 18:02 Nasal Coronavir HKU1 PCR NOT DETECTED 02/06/21 18:02 Nasal Coronavir NL63 PCR NOT DETECTED 02/06/21 18:02 Nasal Coronavir OC43 PCR NOT DETECTED 02/06/21 18:02 Nasal Enterovir/Rhinovir PCR NOT DETECTED 02/06/21 18:02 Nasal Influenza B PCR NOT DETECTED 02/06/21 18:02 Nasal Influenza A PCR NOT DETECTED 02/06/21 18:02 Nasal Parainfluen 1 PCR NOT DETECTED 02/06/21 18:02 Nasal Parainfluen 2 PCR NOT DETECTED 02/06/21 18:02 Nasal Parainfluen 3 PCR NOT DETECTED 02/06/21 18:02 Nasal Parainfluen 4 PCR NOT DETECTED 02/06/21 18:02 Nasal RSV (PCR) NOT DETECTED 02/06/21 18:02 Nasal B.pertussis DNA PCR NOT DETECTED 02/06/21 18:02 Nasal C.pneumoniae (PCR) NOT DETECTED 02/06/21 18:02 Junior Human Metapneumo PCR NOT DETECTED 02/06/21 18:02 Nasal M.pneumoniae (PCR) NOT DETECTED 02/06/21 18:02 Nasal SARS-CoV-2 (PCR) DETECTED A 02/06/21 18:02 ABX Reporting Has patient been on IV antibiotics over the past 48 hours?: No Current Medications - Current Medications Current Medications: Active Medications Apixaban (Apixaban 5 Mg Tablet) 5 mg PO BID [facility] Last Admin: 02/08/21 09:10 Dose: 5 mg Documented by: Benzonatate (Benzonatate 100 Mg Capsule) 200 mg PO QID PRN PRN Reason: Cough Last Admin: 02/08/21 00:16 Dose: 200 mg Documented by: Cholecalciferol (Cholecalciferol 25 Mcg Tablet) 50 mcg PO DAILY [facility] Last Admin: 02/08/21 09:10 Dose: 50 mcg Documented by: Dexamethasone (Dexamethasone 4 Mg/Ml Vial) 6 mg IVP DAILY [facility] Last Admin: 02/08/21 09:05 Dose: 6 mg Documented by: Guaifenesin (Guaifenesin 600 Mg Tablet) 600 mg PO BID [facility] Last Admin: 02/08/21 09:10 Dose: 600 mg Documented by: Remdesivir 100 mg/ Sodium (Chloride) 100 mls @ 200 mls/hr IV DAILY AP Stop: 02/11/21 09:29 Last Infusion: 02/08/21 10:06 Dose: Infused Documented by: Insulin Aspart (Insulin Aspart 300 Unit/3 Ml Pen) 3 - 11 unit SUBQ 0800,120 0,1700,2100 [facility]; Protocol Last Admin: 02/08/21 11:54 Dose: 11 unit Documented by: Insulin Aspart (Insulin Aspart 300 Unit/3 Ml Pen) 8 unit SUBQ ONCE ONE Stop: 02/08/21 14:41 Insulin Glargine (Insulin Glargine 300 Unit/3 Ml Pen) 10 unit SUBQ QPM [facility] Ketorolac Tromethamine (Ketorolac 10 Mg Tablet) 10 mg PO Q6HR PRN PRN Reason: PAIN Stop: 02/12/21 15:29 Loperamide HCl (Loperamide 2 Mg Capsule) 2 mg PO BID PRN PRN Reason: Diarrhea Last Admin: 02/07/21 17:34 Dose: 2 mg Documented by: Ondansetron HCl (Ondansetron 4 Mg/2 Ml Vial) 4 mg IVP Q6HR PRN PRN Reason: Nausea / Vomiting Pantoprazole Sodium (Pantoprazole 40 Mg Tablet) 40 mg PO QDAC [facility] Last Admin: 02/08/21 06:19 Dose: 40 mg Documented by: Sodium Chloride (Sodium Chloride Flush 0.9% 10 Ml Syringe) 10 ml IVP PRN PRN PRN Reason: NEEDED PER PROVIDER ORDERS Last Admin: 02/06/21 23:00 Dose: 10 ml Documented by: Sodium Chloride (Sodium Chloride Flush 0.9% 10 Ml Syringe) 10 ml IVP 0100,0900,1700 [facility] Last Admin: 02/08/21 09:10 Dose: 10 ml Documented by:
[2021-02-08] MEDS ORDERED: INSULIN ASPART 300 UNIT/3 ML PEN SUBQ ONE (14:40)
[2021-02-08] MEDS ORDERED: INSULIN GLARGINE 300 UNIT/3 ML PEN SUBQ SCH (21:00)
[2021-02-08] MEDS: KETOROLAC 10 MG TABLET PO PRN (21:25)
[2021-02-08] MEDS: INSULIN GLARGINE 300 UNIT/3 ML PEN SUBQ SCH (21:28)
[2021-02-09 05:38] LABS: BASOPHILS % (AUTO) 0.2 %; EOSINOPHILS % (AUTO) 2.5 %; HCT - HEMATOCRIT 36.2 % (37.0-47.0); HGB - HEMOGLOBIN 12.7 g/dL (12.0-16.0); LYMPHOCYTES % (AUTO) 31.5 %; MEAN CORPUSCULAR HEMOGLOBIN 31.4 pg (27.0-31.0); MEAN CORPUSCULAR HGB CONC 35.1 g/dL (32.0-36.0); MEAN CORPUSCULAR VOLUME 89.4 fL (81.0-99.0); MEAN PLATELET VOLUME 9.6 fL (7.9-10.8); MONOCYTES % (AUTO) 8.5 %; NEUTROPHILS % (AUTO) 56.5 %; PLT - PLATELET COUNT 309 10^3/uL (130-450); RED BLOOD COUNT 4.05 10^6/uL (4.20-5.40); RED CELL DISTRIBUTION WIDTH 12.3 % (12.0-15.0)
[2021-02-09 05:40] LABS: ABNORMAL LYMPHS % (MANUAL) 0 %
[2021-02-09 05:50] LABS: CALCIUM 8.6 mg/dL (8.5-10.3); CREATININE 0.4 mg/dL (0.4-1.0); POTASSIUM 3.7 mmol/L (3.5-5.0)
[2021-02-09 06:00] LABS: BAND NEUTROPHILS % (MANUAL) 1 %; LYMPHOCYTES # (MANUAL) 1.9 10^3/uL (1.5-3.5); LYMPHOCYTES % (MANUAL) 32 %; MONOCYTES # (MANUAL) 0.4 10^3/uL (0.0-1.0); NEUTROPHILS # (MANUAL) 3.7 10^3/uL (1.5-6.6)
[2021-02-09 06:01] LABS: DIFFERENTIAL COMMENT MANUAL DIFFERENTIAL; PLATELET ESTIMATE, MANUAL NORMAL (130-450,000) (NORMAL); PLATELET MORPHOLOGY NORMAL APPEARANCE (NORMAL); RBC MORPHOLOGY (MULTIPLE) NORMAL APPEARANCE (NORMAL); WBC MORPHOLOGY (MULTIPLE) NORMAL APPEARANCE (NORMAL)
[2021-02-09] MEDS: PANTOPRAZOLE 40 MG TABLET PO SCH (06:21)
[2021-02-09] MEDS: SODIUM CHLORIDE FLUSH 0.9% 10 ML SYRINGE IVP SCH ×3 (06:21→18:01)
[2021-02-09] MEDS ORDERED: INSULIN GLARGINE 300 UNIT/3 ML PEN SUBQ SCH (08:00)
[2021-02-09] MEDS: DEXAMETHASONE 4 MG/ML VIAL IVP SCH (10:40)
[2021-02-09] MEDS: INSULIN ASPART 300 UNIT/3 ML PEN SUBQ SCH ×4 (10:52→20:57)
[2021-02-09] MEDS: SODIUM CHLORIDE FLUSH 0.9% 10 ML SYRINGE IVP PRN (10:55)
[2021-02-09] MEDS: REMDESIVIR 100MG VIAL 100 MG in SODIUM CHLORIDE 0.9% 100ML 100 ML IV SCH (10:57)
[2021-02-09] MEDS: guaiFENesin 600 MG TABLET PO SCH ×2 (11:20→20:57)
[2021-02-09] MEDS: APIXABAN 5 MG TABLET PO SCH ×2 (11:20→20:57)
[2021-02-09] MEDS: CHOLECALCIFEROL 25 MCG TABLET PO SCH (11:20)
--- NOTE | 2021-02-09 12:00 | PROVIDER PROGRESS NOTE ---
Assessment/Plan - Problem List (1) Acute respiratory failure with hypoxia Assessment/Plan: 02/09 stable, pt has no acute respiratory distress. nurse report had pt had 95% O2 sat on 40 HHFNC and 60% FiO2, continue remain HHFNC high flow with oxygen for pt 02/08 stable, pt feel comfortable, no acute respiratory distress. pt had 93% O2 sats on 40 liter of HHFNC with 60% FiO2. continue the setting for HHFNC, continue Remdesivir, Decadron, Eliquis 02/07 after Patient needed HHFNC 35, pt report she feel much better. pt has no acute respiratory distress now. Call pharmacy to have Remdesivir for pt, kanu nue Decadron, Eliquis, continue HHFNC, supplement of O2 for pt. (2) Pneumonia due to COVID-19 virus Conclusion/Plan: pt has positive Covid test, with acute Respiratory failure with hypoxia, add Remdesivir for pt, continue Decadron, Eliquis, continue HHFNC and supplement of O2 for pt. (3) diabetes with Hyperglycemia induced by steroid Conclusion/Plan: 02/09 add QPM and Qdaily Lantus and high slide scale for pt now, continue glucose check, slide scale and hypoglycemia protocol 02/08, unfortunately pt's A1C is 9.9, she was unknown she had diabetes. Now she is diabetes. pt still has hyperglycemia. increase Novolog for slide scale, add lantus on night, continue glucose check, slide scale, hypoglycemia protocol. glucose is 295, pt has no hx of diabetes, it is likely caused by Decadron, will add slide scale, glucose check, pt has hx of obesity, will check A1C as well. (4) Hyponatremia Conclusion/Plan: resolved (5) Hypokalemia Conclusion/Plan: resolved (6) Obesity (BMI 30-39.9) Conclusion/Plan: Obesity has been documented as a risk factor for poor Covid outcomes, also check A1C - Current Meds Current Meds: Current Medications Generic Name Dose Route Start Last Admin Trade Name Freq PRN Reason Stop Dose Admin Apixaban 5 mg 02/07/21 21:00 02/09/21 11:20 Apixaban 5 Mg Tablet PO 5 mg BID AP Administration Benzonatate 200 mg 02/06/21 21:31 02/08/21 00:16 Benzonatate 100 Mg Capsule PO 200 mg QID PRN Administration Cough Cholecalciferol 50 mcg 02/08/21 09:00 02/09/21 11:20 Cholecalciferol 25 Mcg Tablet PO 50 mcg DAILY AP Administration Dexamethasone 6 mg 02/07/21 09:00 02/09/21 10:40 Dexamethasone 4 Mg/Ml Vial IVP 6 mg DAILY AP Administration Guaifenesin 600 mg 02/07/21 09:00 02/09/21 11:20 Guaifenesin 600 Mg Tablet PO 600 mg BID AP Administration Remdesivir 100 mg/ Sodium 100 mls @ 200 mls/hr 02/08/21 09:00 02/09/21 10:57 Chloride IV 02/11/21 09:29 200 mls/hr DAILY AP Administration Insulin Aspart 3 - 11 unit 02/08/21 08:00 02/09/21 10:52 Insulin Aspart 300 Unit/3 Ml Pen SUBQ 5 unit 0800,1200,1700,2100 AP Administration Protocol Insulin Glargine 10 unit 02/08/21 21:00 02/08/21 21:28 Insulin Glargine 300 Unit/3 Ml Pen SUBQ 10 unit QPM AP Administration Insulin Glargine 5 unit 02/09/21 08:00 02/09/21 10:51 Insulin Glargine 300 Unit/3 Ml Pen SUBQ 5 unit QDBREAKFAST PA Administration Ketorolac Tromethamine 10 mg 02/07/21 15:30 02/08/21 21:25 Ketorolac 10 Mg Tablet PO 02/12/21 15:29 10 mg Q6HR PRN Administration PAIN Loperamide HCl 2 mg 02/07/21 09:00 02/07/21 17:34 Loperamide 2 Mg Capsule PO 2 mg BID PRN Administration Diarrhea Pantoprazole Sodium 40 mg 02/07/21 07:00 02/09/21 06:21 Pantoprazole 40 Mg Tablet PO 40 mg QDAC AP Administration Sodium Chloride 10 ml 02/06/21 20:49 02/09/21 10:55 Sodium Chloride Flush 0.9% 10 Ml Syringe IVP 10 ml PRN PRN Administration NEEDED PER PROVIDER ORDERS Sodium Chloride 10 ml 02/07/21 01:00 02/09/21 11:21 Sodium Chloride Flush 0.9% 10 Ml Syringe IVP 10 ml 0100,0900,1700 AP Administration - Lab Result Fish Bone Diagrams: 02/09/21 05:31 02/09/21 05:31 - Additional Planning My Orders: My Active Orders 02/08/21 21:00 Insulin Glargine [Lantus Solostar] 10 unit SUBQ QPM 02/09/21 08:00 Insulin Glargine [Lantus Solostar] 5 unit SUBQ QDBREAKFAST Subjective - Subjective Patient Reports: Feeling Better, Resting Comfortably Objective Vital Signs: Vital Signs - 24 hr 02/08/21 02/08/21 02/08/21 12:31 15:38 21:16 Temperature 36.9 C 36.8 C 36.8 C Heart Rate [ 77 93 85 Brachial] Respiratory 20 24 22 Rate Blood Pressure 104/65 120/81 H [Left Brachial artery] Blood Pressure 116/73 [Right Brachial artery] O2 Saturation 93 93 94 02/09/21 02/09/21 02/09/21 01:53 02:10 06:05 Temperature 36.7 C 36.6 C Heart Rate [ 68 76 Brachial] Respiratory 21 22 Rate Blood Pressure [Left Brachial artery] Blood Pressure 107/75 112/70 [Right Brachial artery] O2 Saturation 92 93 90 L 02/09/21 08:49 Temperature 36.6 C Heart Rate [ 70 Brachial] Respiratory 20 Rate Blood Pressure [Left Brachial artery] Blood Pressure 110/71 [Right Brachial artery] O2 Saturation 90 L Oxygen O2 Source HHFNC Oxygen Flow Rate 4 I&O (Last 24 Hrs): Intake and Output Totals x24h 02/07/21 02/08/21 02/09/21 23:59 23:59 23:59 Intake Total 2270 800 150 Output Total 1999 Balance 2270 -1200 150 General: Alert, Oriented x3, Cooperative, No acute distress HEENT: Atraumatic Neck: Supple Lymphatic: no adenopathy Neuro: Alert, Non Focal, Oriented Times 3 Cardiovascular: Regular rate, Normal S1, Normal S2 Respiratory: Chest non-tender, No respiratory distress Abdomen: Normal bowel sounds, Soft Extremities: Normal pulses - Results Results: Laboratory Results WBC 6.0 x10^3/uL (4.8-10.8) 02/09/21 05:31 RBC 4.05 10^6/uL (4.20-5.40) L 02/09/21 05:31 Hgb 12.7 g/dL (12.0-16.0) 02/09/21 05:31 Hct 36.2 % (37.0-47.0) L 02/09/21 05:31 MCV 89.4 fL (81.0-99.0) 02/09/21 05:31 MCH 31.4 pg (27.0-31.0) H 02/09/21 05:31 MCHC 35.1 g/dL (32.0-36.0) 02/09/21 05:31 RDW 12.3 % (12.0-15.0) 02/09/21 05:31 Plt Count 309 10^3/uL (130-450) 02/09/21 05:31 MPV 9.6 fL (7.9-10.8) 02/09/21 05:31 Neut # (Auto) Not Reportable 02/09/21 05:31 Lymph # (Auto) Not Reportable 02/09/21 05:31 [place] # (Auto) Not Reportable 02/09/21 05:31 Eos # (Auto) Not Reportable 02/09/21 05:31 Baso # (Auto) Not Reportable 02/09/21 05:31 Absolute Nucleated RBC Not Reportable 02/09/21 05:31 Total Counted 100 02/09/21 05:31 Band Neuts % (Manual) 1 % (0-10) 02/09/21 05:31 Abnorm Lymph % (Manual) 0 % 02/09/21 05:31 Nucleated RBC % Not Reportable 02/09/21 05:31 Neutrophils # (Manual) 3.7 10^3/uL (1.5-6.6) 02/09/21 05:31 Lymphocytes # (Manual) 1.9 10^3/uL (1.5-3.5) 02/09/21 05:31 Monocytes # (Manual) 0.4 10^3/uL (0.0-1.0) 02/09/21 05:31 Eosinophils # (Manual) 0.0 10^3/uL (0-0.7) 02/09/21 05:31 Basophils # (Manual) 0.0 10^3/uL (0-0.1) 02/09/21 05:31 Differential Comment MANUAL DIFFERENTIAL 02/09/21 05:31 WBC Morphology NORMAL APPEARANCE (NORMAL) 02/09/21 05:31 Platelet Estimate NORMAL (130-450,000) (NORMAL) 02/09/21 05:31 Platelet Morphology NORMAL APPEARANCE (NORMAL) 02/09/21 05:31 RBC Morph Micro Appear NORMAL APPEARANCE (NORMAL) 02/09/21 05:31 D-Dimer 605.4 ng/mL (200.0-255.0) H 02/06/21 18:12 Sodium 135 mmol/L (135-145) 02/09/21 05:31 Potassium 3.7 mmol/L (3.5-5.0) 02/09/21 05:31 Chloride 99 mmol/L (101-111) L 02/09/21 05:31 Carbon Dioxide 24 mmol/L (21-32) 02/09/21 05:31 Anion Gap 12.0 (6-13) 02/09/21 05:31 BUN 19 mg/dL (6-20) 02/09/21 05:31 Creatinine 0.4 mg/dL (0.4-1.0) 02/09/21 05:31 Estimated GFR (MDRD) 182 (>89) 02/09/21 05:31 Glucose 238 mg/dL (70-100) H 02/09/21 05:31 POC Whole Bld Glucose 223 mg/dL (70 - 100) H 02/09/21 11:14 Estimat Average Glucose 237 mg/dL (70-100) H 02/08/21 06:10 Hemoglobin A1c % 9.9 % (4.27-6.07) H 02/08/21 06:10 Calcium 8.6 mg/dL (8.5-10.3) 02/09/21 05:31 Magnesium 2.2 mg/dL (1.7-2.8) 02/08/21 06:10 Total Bilirubin 0.9 mg/dL (0.2-1.0) 02/06/21 18:12 Direct Bilirubin 0.2 mg/dL (0.1-0.5) 02/06/21 18:12 AST 54 IU/L (10-42) H 02/06/21 18:12 ALT 50 IU/L (10-60) 02/06/21 18:12 Alkaline Phosphatase 59 IU/L (42-121) 02/06/21 18:12 Total Protein 7.2 g/dL (6.7-8.2) 02/06/21 18:12 Albumin 3.7 g/dL (3.2-5.5) 02/06/21 18:12 Globulin 3.5 g/dL (2.1-4.2) 02/06/21 18:12 25-OH Vitamin D Total 45 ng/mL (30-100) 02/07/21 15:10 Nasal Adenovirus (PCR) NOT DETECTED 02/06/21 18:02 Nasal B. parapertussis DNA (PCR) NOT DETECTED 02/06/21 18:02 Nasal Coronavir 229E PCR NOT DETECTED 02/06/21 18:02 Nasal Coronavir HKU1 PCR NOT DETECTED 02/06/21 18:02 Nasal Coronavir NL63 PCR NOT DETECTED 02/06/21 18:02 Nasal Coronavir OC43 PCR NOT DETECTED 02/06/21 18:02 Nasal Enterovir/Rhinovir PCR NOT DETECTED 02/06/21 18:02 Nasal Influenza B PCR NOT DETECTED 02/06/21 18:02 Nasal Influenza A PCR NOT DETECTED 02/06/21 18:02 Nasal Parainfluen 1 PCR NOT DETECTED 02/06/21 18:02 Nasal Parainfluen 2 PCR NOT DETECTED 02/06/21 18:02 Nasal Parainfluen 3 PCR NOT DETECTED 02/06/21 18:02 Nasal Parainfluen 4 PCR NOT DETECTED 02/06/21 18:02 Nasal RSV (PCR) NOT DETECTED 02/06/21 18:02 Nasal B.pertussis DNA PCR NOT DETECTED 02/06/21 18:02 Nasal C.pneumoniae (PCR) NOT DETECTED 02/06/21 18:02 Junior Human Metapneumo PCR NOT DETECTED 02/06/21 18:02 Nasal M.pneumoniae (PCR) NOT DETECTED 02/06/21 18:02 Nasal SARS-CoV-2 (PCR) DETECTED A 02/06/21 18:02 ABX Reporting Has patient been on IV antibiotics over the past 48 hours?: No Current Medications - Current Medications Current Medications: Active Medications Apixaban (Apixaban 5 Mg Tablet) 5 mg PO BID AP Last Admin: 02/09/21 11:20 Dose: 5 mg Documented by: Benzonatate (Benzonatate 100 Mg Capsule) 200 mg PO QID PRN PRN Reason: Cough Last Admin: 02/08/21 00:16 Dose: 200 mg Documented by: Cholecalciferol (Cholecalciferol 25 Mcg Tablet) 50 mcg PO DAILY [facility] Last Admin: 02/09/21 11:20 Dose: 50 mcg Documented by: Dexamethasone (Dexamethasone 4 Mg/Ml Vial) 6 mg IVP DAILY [facility] Last Admin: 02/09/21 10:40 Dose: 6 mg Documented by: Guaifenesin (Guaifenesin 600 Mg Tablet) 600 mg PO BID [facility] Last Admin: 02/09/21 11:20 Dose: 600 mg Documented by: Remdesivir 100 mg/ Sodium (Chloride) 100 mls @ 200 mls/hr IV DAILY [facility] Stop: 02/11/21 09:29 Last Admin: 02/09/21 10:57 Dose: 200 mls/hr Documented by: Insulin Aspart (Insulin Aspart 300 Unit/3 Ml Pen) 3 - 11 unit SUBQ 0800,1200,1700,2100 [facility]; Protocol Last Admin: 02/09/21 10:52 Dose: 5 unit Documented by: Insulin Glargine (Insulin Glargine 300 Unit/3 Ml Pen) 10 unit SUBQ QPM [facility] Last Admin: 02/08/21 21:28 Dose: 10 unit Documented by: Insulin Glargine (Insulin Glargine 300 Unit/3 Ml Pen) 5 unit SUBQ QDBREAKFAST [facility] Last Admin: 02/09/21 10:51 Dose: 5 unit Documented by: Ketorolac Tromethamine (Ketorolac 10 Mg Tablet) 10 mg PO Q6HR PRN PRN Reason: PAIN Stop: 02/12/21 15:29 Last Admin: 02/08/21 21:25 Dose: 10 mg Documented by: Loperamide HCl (Loperamide 2 Mg Capsule) 2 mg PO BID PRN PRN Reason: Diarrhea Last Admin: 02/07/21 17:34 Dose: 2 mg Documented by: Ondansetron HCl (Ondansetron 4 Mg/2 Ml Vial) 4 mg IVP Q6HR PRN PRN Reason: Nausea / Vomiting Pantoprazole Sodium (Pantoprazole 40 Mg Tablet) 40 mg PO QDAC [facility] Last Admin: 02/09/21 06:21 Dose: 40 mg Documented by: Sodium Chloride (Sodium Chloride Flush 0.9% 10 Ml Syringe) 10 ml IVP PRN PRN PRN Reason: NEEDED PER PROVIDER ORDERS Last Admin: 02/09/21 10:55 Dose: 10 ml Documented by: Sodium Chloride (Sodium Chloride Flush 0.9% 10 Ml Syringe) 10 ml IVP 0100,0900,1700 AP Last Admin: 02/09/21 11:21 Dose: 10 ml Documented by:
[2021-02-09] MEDS ORDERED: INSULIN ASPART 300 UNIT/3 ML PEN SUBQ ONE (17:47)
[2021-02-09] MEDS: INSULIN GLARGINE 300 UNIT/3 ML PEN SUBQ SCH (20:58)
[2021-02-10] MEDS: KETOROLAC 10 MG TABLET PO PRN (01:04)
[2021-02-10] MEDS: SODIUM CHLORIDE FLUSH 0.9% 10 ML SYRINGE IVP SCH ×3 (01:05→17:20)
[2021-02-10 06:32] LABS: BASOPHILS % (AUTO) 0.1 %; EOSINOPHILS % (AUTO) 0.1 %; HCT - HEMATOCRIT 35.9 % (37.0-47.0); HGB - HEMOGLOBIN 12.4 g/dL (12.0-16.0); LYMPHOCYTES % (AUTO) 35.9 %; MEAN CORPUSCULAR HEMOGLOBIN 31.2 pg (27.0-31.0); MEAN CORPUSCULAR HGB CONC 34.5 g/dL (32.0-36.0); MEAN CORPUSCULAR VOLUME 90.2 fL (81.0-99.0); MEAN PLATELET VOLUME 9.6 fL (7.9-10.8); MONOCYTES % (AUTO) 8.8 %; NEUTROPHILS % (AUTO) 54.3 %; PLT - PLATELET COUNT 378 10^3/uL (130-450); RED BLOOD COUNT 3.98 10^6/uL (4.20-5.40); RED CELL DISTRIBUTION WIDTH 12.1 % (12.0-15.0); WHITE BLOOD COUNT 7.2 x10^3/uL (4.8-10.8)
[2021-02-10] MEDS: PANTOPRAZOLE 40 MG TABLET PO SCH (06:33)
[2021-02-10 06:42] LABS: BAND NEUTROPHILS % (MANUAL) 0 %; CALCIUM 8.4 mg/dL (8.5-10.3); CREATININE 0.5 mg/dL (0.4-1.0); POTASSIUM 3.5 mmol/L (3.5-5.0)
[2021-02-10 07:01] LABS: ABNORMAL LYMPHS % (MANUAL) 1 %; EOSINOPHILS # (MANUAL) 0.1 10^3/uL (0-0.7); LYMPHOCYTES # (MANUAL) 2.7 10^3/uL (1.5-3.5); LYMPHOCYTES % (MANUAL) 37 %; MONOCYTES # (MANUAL) 0.4 10^3/uL (0.0-1.0)
[2021-02-10 07:02] LABS: DIFFERENTIAL COMMENT MANUAL DIFFERENTIAL; PLATELET ESTIMATE, MANUAL NORMAL (130-450,000) (NORMAL); PLATELET MORPHOLOGY NORMAL APPEARANCE (NORMAL); RBC MORPHOLOGY (MULTIPLE) NORMAL APPEARANCE (NORMAL); WBC MORPHOLOGY (MULTIPLE) NORMAL APPEARANCE (NORMAL)
[2021-02-10] MEDS: INSULIN GLARGINE 300 UNIT/3 ML PEN SUBQ SCH ×2 (08:04→21:07)
[2021-02-10] MEDS: INSULIN ASPART 300 UNIT/3 ML PEN SUBQ SCH ×4 (08:05→21:08)
--- NOTE | 2021-02-10 08:33 | PROVIDER PROGRESS NOTE ---
Assessment/Plan - Problem List (1) Acute respiratory failure with hypoxia Assessment/Plan: Secondary to COVID-19 pneumonia. Patient is currently on 3 L of oxygen via nasal cannula with oxygen saturation at 94%. Respiratory rate 18. She is comfortable. Decadron 07/01, remdesivir 4/. Discharge home tomorrow. (2) Pneumonia due to COVID-19 virus Assessment/Plan: Patient is currently on 3 L of oxygen via nasal cannula with oxygen saturation at 94%. Respiratory rate 18. She is comfortable. Eliquis for DVT prophylaxis. Decadron 07/01, remdesivir 4/. Discharge home tomorrow. (3) Diabetes mellitus with hyperglycemia Qualifiers: Diabetes mellitus type: type 2 Assessment/Plan: Patient's hemoglobin A1c was 9.9. Lantus 10 units every afternoon and 5 units at breakfast. Accu-Cheks before every meal at bedtime, sliding scale insulin. (4) Obesity (BMI 30-39.9) Assessment/Plan: Advised diet and exercise. - Current Meds Current Meds: Current Medications Generic Name Dose Route Start Last Admin Trade Name Freq PRN Reason Stop Dose Admin Apixaban 5 mg 02/07/21 21:00 02/09/21 20:57 Apixaban 5 Mg Tablet PO 5 mg BID AP Administration Benzonatate 200 mg 02/06/21 21:31 02/08/21 00:16 Benzonatate 100 Mg Capsule PO 200 mg QID PRN Administration Cough Cholecalciferol 50 mcg 02/08/21 09:00 02/09/21 11:20 Cholecalciferol 25 Mcg Tablet PO 50 mcg DAILY AP Administration Dexamethasone 6 mg 02/07/21 09:00 02/09/21 10:40 Dexamethasone 4 Mg/Ml Vial IVP 6 mg DAILY AP Administration Guaifenesin 600 mg 02/07/21 09:00 02/09/21 20:57 Guaifenesin 600 Mg Tablet PO 600 mg BID AP Administration Remdesivir 100 mg/ Sodium 100 mls @ 200 mls/hr 02/08/21 09:00 02/09/21 11:30 Chloride IV 02/11/21 09:29 Infused DAILY AP Infusion Insulin Aspart 3 - 11 unit 02/08/21 08:00 02/10/21 08:05 Insulin Aspart 300 Unit/3 Ml Pen SUBQ 3 unit 0800,1200,1700,2100 AP Administration Protocol Insulin Glargine 10 unit 02/08/21 21:00 02/09/21 20:58 Insulin Glargine 300 Unit/3 Ml Pen SUBQ 10 unit QPM AP Administration Insulin Glargine 10 unit 02/10/21 08:00 02/10/21 08:04 Insulin Glargine 300 Unit/3 Ml Pen SUBQ 10 unit QDBREAKFAST AP Administration Ketorolac Tromethamine 10 mg 02/07/21 15:30 02/10/21 01:04 Ketorolac 10 Mg Tablet PO 02/12/21 15:29 10 mg Q6HR PRN Administration PAIN Loperamide HCl 2 mg 02/07/21 09:00 02/07/21 17:34 Loperamide 2 Mg Capsule PO 2 mg BID PRN Administration Diarrhea Pantoprazole Sodium 40 mg 02/07/21 07:00 02/10/21 06:33 Pantoprazole 40 Mg Tablet PO 40 mg QDAC AP Administration Sodium Chloride 10 ml 02/06/21 20:49 02/09/21 10:55 Sodium Chloride Flush 0.9% 10 Ml Syringe IVP 10 ml PRN PRN Administration NEEDED PER PROVIDER ORDERS Sodium Chloride 10 ml 02/07/21 01:00 02/10/21 08:07 Sodium Chloride Flush 0.9% 10 Ml Syringe IVP 10 ml 0100,0900,1700 AP Administration - Lab Result Fish Bone Diagrams: 02/10/21 06:00 02/10/21 06:00 Subjective - Subjective Patient Reports: Other (Patient was resting comfortably in bed proned. She reported significant improvement in her breathing. Denied chest pain, abdominal pain, nausea or vomiting.) Objective Vital Signs: Vital Signs - 24 hr 02/09/21 02/09/21 02/09/21 08:49 11:47 16:29 Temperature 36.6 C 37.1 C Heart Rate [ 70 83 79 Brachial] Respiratory 20 20 22 Rate Blood Pressure 108/60 [Left Brachial artery] Blood Pressure 110/71 106/72 [Right Brachial artery] O2 Saturation 90 L 95 94 02/09/21 02/10/21 02/10/21 20:45 01:12 06:31 Temperature 37.0 C 36.8 C 36.6 C Heart Rate [ 78 61 63 Brachial] Respiratory 20 20 19 Rate Blood Pressure [Left Brachial artery] Blood Pressure 104/73 105/75 113/69 [Right Brachial artery] O2 Saturation 94 94 92 02/10/21 07:49 Temperature 36.9 C Heart Rate [ 52 L Brachial] Respiratory 20 Rate Blood Pressure [Left Brachial artery] Blood Pressure 114/71 [Right Brachial artery] O2 Saturation 98 Oxygen O2 Source Nasal cannula Oxygen Flow Rate 4 I&O (Last 24 Hrs): Intake and Output Totals x24h 02/08/21 02/09/21 02/10/21 23:59 23:59 23:59 Intake Total 800 1820 25 Output Total 2000 Balance -1200 1820 25 General: Alert, Oriented x3, No acute distress HEENT: Atraumatic, PERRLA Neck: Supple, No JVD Neuro: Alert, Oriented Times 3 Cardiovascular: Regular rate, No murmurs Respiratory: Chest non-tender, No respiratory distress, Breath sounds nml (but coarse) Abdomen: Normal bowel sounds, Soft, No tenderness Extremities: No clubbing, No cyanosis, No edema Skin: No rashes, No breakdown, No significant lesion - Results Results: Laboratory Results WBC 7.2 x10^3/uL (4.8-10.8) 02/10/21 06:00 RBC 3.98 10^6/uL (4.20-5.40) L 02/10/21 06:00 Hgb 12.4 g/dL (12.0-16.0) 02/10/21 06:00 Hct 35.9 % (37.0-47.0) L 02/10/21 06:00 MCV 90.2 fL (81.0-99.0) 02/10/21 06:00 MCH 31.2 pg (27.0-31.0) H 02/10/21 06:00 MCHC 34.5 g/dL (32.0-36.0) 02/10/21 06:00 RDW 12.1 % (12.0-15.0) 02/10/21 06:00 Plt Count 378 10^3/uL (130-450) 02/10/21 06:00 MPV 9.6 fL (7.9-10.8) 02/10/21 06:00 Neut # (Auto) Not Reportable 02/10/21 06:00 Lymph # (Auto) Not Reportable 02/10/21 06:00 [place] # (Auto) Not Reportable 02/10/21 06:00 Eos # (Auto) Not Reportable 02/10/21 06:00 Baso # (Auto) Not Reportable 02/10/21 06:00 Absolute Nucleated RBC Not Reportable 02/10/21 06:00 Total Counted 100 02/10/21 06:00 Band Neuts % (Manual) 0 % (0-10) 02/10/21 06:00 Abnorm Lymph % (Manual) 1 % 02/10/21 06:00 Nucleated RBC % Not Reportable 02/10/21 06:00 Neutrophils # (Manual) 4.0 10^3/uL (1.5-6.6) 02/10/21 06:00 Lymphocytes # (Manual) 2.7 10^3/uL (1.5-3.5) 02/10/21 06:00 Monocytes # (Manual) 0.4 10^3/uL (0.0-1.0) 02/10/21 06:00 Eosinophils # (Manual) 0.1 10^3/uL (0-0.7) 02/10/21 06:00 Basophils # (Manual) 0.0 10^3/uL (0-0.1) 02/10/21 06:00 Differential Comment MANUAL DIFFERENTIAL 02/10/21 06:00 WBC Morphology NORMAL APPEARANCE (NORMAL) 02/10/21 06:00 Platelet Estimate NORMAL (130-450,000) (NORMAL) 02/10/21 06:00 Platelet Morphology NORMAL APPEARANCE (NORMAL) 02/10/21 06:00 RBC Morph Micro Appear NORMAL APPEARANCE (NORMAL) 02/10/21 06:00 D-Dimer 605.4 ng/mL (200.0-255.0) H 02/06/21 18:12 Sodium 136 mmol/L (135-145) 02/10/21 06:00 Potassium 3.5 mmol/L (3.5-5.0) 02/10/21 06:00 Chloride 99 mmol/L (101-111) L 02/10/21 06:00 Carbon Dioxide 25 mmol/L (21-32) 02/10/21 06:00 Anion Gap 12.0 (6-13) 02/10/21 06:00 BUN 20 mg/dL (6-20) 02/10/21 06:00 Creatinine 0.5 mg/dL (0.4-1.0) 02/10/21 06:00 Estimated GFR (MDRD) 140 (>89) 02/10/21 06:00 Glucose 169 mg/dL (70-100) H 02/10/21 06:00 POC Whole Bld Glucose 169 mg/dL (70 - 100) H 02/10/21 07:43 Estimat Average Glucose 237 mg/dL (70-100) H 02/08/21 06:10 Hemoglobin A1c % 9.9 % (4.27-6.07) H 02/08/21 06:10 Calcium 8.4 mg/dL (8.5-10.3) L 02/10/21 06:00 Magnesium 2.2 mg/dL (1.7-2.8) 02/08/21 06:10 Total Bilirubin 0.9 mg/dL (0.2-1.0) 02/06/21 18:12 Direct Bilirubin 0.2 mg/dL (0.1-0.5) 02/06/21 18:12 AST 54 IU/L (10-42) H 02/06/21 18:12 ALT 50 IU/L (10-60) 02/06/21 18:12 Alkaline Phosphatase 59 IU/L (42-121) 02/06/21 18:12 Total Protein 7.2 g/dL (6.7-8.2) 02/06/21 18:12 Albumin 3.7 g/dL (3.2-5.5) 02/06/21 18:12 Globulin 3.5 g/dL (2.1-4.2) 02/06/21 18:12 25-OH Vitamin D Total 45 ng/mL (30-100) 02/07/21 15:10 Nasal Adenovirus (PCR) NOT DETECTED 02/06/21 18:02 Nasal B. parapertussis DNA (PCR) NOT DETECTED 02/06/21 18:02 Nasal Coronavir 229E PCR NOT DETECTED 02/06/21 18:02 Nasal Coronavir HKU1 PCR NOT DETECTED 02/06/21 18:02 Nasal Coronavir NL63 PCR NOT DETECTED 02/06/21 18:02 Nasal Coronavir OC43 PCR NOT DETECTED 02/06/21 18:02 Nasal Enterovir/Rhinovir PCR NOT DETECTED 02/06/21 18:02 Nasal Influenza B PCR NOT DETECTED 02/06/21 18:02 Nasal Influenza A PCR NOT DETECTED 02/06/21 18:02 Nasal Parainfluen 1 PCR NOT DETECTED 02/06/21 18:02 Nasal Parainfluen 2 PCR NOT DETECTED 02/06/21 18:02 Nasal Parainfluen 3 PCR NOT DETECTED 02/06/21 18:02 Nasal Parainfluen 4 PCR NOT DETECTED 02/06/21 18:02 Nasal RSV (PCR) NOT DETECTED 02/06/21 18:02 Nasal B.pertussis DNA PCR NOT DETECTED 02/06/21 18:02 Nasal C.pneumoniae (PCR) NOT DETECTED 02/06/21 18:02 Junior Human Metapneumo PCR NOT DETECTED 02/06/21 18:02 Nasal M.pneumoniae (PCR) NOT DETECTED 02/06/21 18:02 Nasal SARS-CoV-2 (PCR) DETECTED A 02/06/21 18:02 ABX Reporting Has patient been on IV antibiotics over the past 48 hours?: No
[2021-02-10] MEDS: guaiFENesin 600 MG TABLET PO SCH ×2 (10:02→21:07)
[2021-02-10] MEDS: APIXABAN 5 MG TABLET PO SCH ×2 (10:02→21:07)
[2021-02-10] MEDS: CHOLECALCIFEROL 25 MCG TABLET PO SCH (10:02)
[2021-02-10] MEDS: DEXAMETHASONE 4 MG/ML VIAL IVP SCH (10:05)
[2021-02-10] MEDS: REMDESIVIR 100MG VIAL 100 MG in SODIUM CHLORIDE 0.9% 100ML 100 ML IV SCH (10:13)
[2021-02-10] MEDS: SODIUM CHLORIDE FLUSH 0.9% 10 ML SYRINGE IVP PRN (11:34)
[2021-02-11] MEDS: SODIUM CHLORIDE FLUSH 0.9% 10 ML SYRINGE IVP SCH ×2 (06:45→10:43)
[2021-02-11] MEDS: PANTOPRAZOLE 40 MG TABLET PO SCH (06:45)
--- NOTE | 2021-02-11 07:07 | Discharge Plan ---
Discharge Plan Problem Reviewed?: Yes Disposition: Home, Self Care Condition: Stable Prescriptions: Dexamethasone [Decadron] 6 mg PO DAILY 5 Days #5 tablet metFORMIN [Glucophage] 500 mg PO BIDWM 30 Days #60 tablet Diet: Diabetic Activity Restrictions: Activity as Tolerated Health Concerns: You were admitted on 02/06/2021 with dyspnea and hypoxia. You were diagnosed with COVID-19 and started on treatment. This was maintained for a 5-day hospital stay. You are oxygen requirement steadily decreased over the course of this 5 days. By the day of discharge you were breathing comfortably on room air and maintaining your oxygen saturation in the 90s. As a result you are being discharged home in stable condition. You have been advised to expect to feel tired for up to 10 days and to allow time for enough rest. Do not be alarmed if your cough persist for a number of days as well. This hospital stay you have been diagnosed with diabetes mellitus type 2 as well. Your hemoglobin A1c which is a 3-month average was 9.9. Usually a diagnosis of diabetes mellitus is made for hemoglobin A1c greater than 7. You are being prescribed Metformin 500 mg p.o. twice daily. This needs to steadily be increased as tolerated. Likely side effect would be diarrhea. You have been advised to modify your diet and also exercise. You expressed understanding of these. You have been advised to establish care with a primary care physician. You acknowledge and plan to do so. No Smoking: If you smoke, Please STOP! Call for help.
--- NOTE | 2021-02-11 07:07 | DISCHARGE SUMMARY ---
Discharge Summary Admit Date: 02/06/21 Discharge Date: 02/11/21 Discharging Provider: Steve Galvantu Code Status: Attempt Resuscitation Condition at Discharge: Stable Discharge Disposition: 01 Home, Self Care - DIAGNOSES Admission Diagnoses: Acute respiratory failure with hypoxia Pneumonia due to COVID-19 virus Hyponatremia Hypokalemia Obesity Discharge Diagnoses with Status of Each Condition: Acute respiratory failure with hypoxia: Improved/ Resolved. Breathing comfortably on Room air at time of discharge Pneumonia due to COVID-19 virus: Improved. Continue Decadron 6mg po daily X5 days at home Hyponatremia: Acute. Resolved Hypokalemia: Acute. Resolved Diabetes mellitus with hyperglycemia: New Diagnosis. HgbA1C was 9.9. Prescribed metformin 500mg po bid with meal. Advised on the importance of diet and Exercise. Patient needs to establish with a primary care physician. Obesity: Advised on the importance of diet and Exercise - HPI History of Present Illness: Per HPI: This is a 35-year-old female with negative past medical history, she is unvaccinated for COVID. She had just decided to get covid vaccinated whenshe became exposed to Covid through a friend or someone at [employer]. She started to develop Covid symptoms over a week ago of myalgias, weakness and fatigue. She came to the ED 2 days ago with new shortness of breath and a cough as well as severe myalgias diffusely. She had a send out Covid swab done and was discharged home with a prescription for Tessalon Perles and instructions for isolation, which she did. Her parents are vaccinated and her mother was her caregiver. She did obtain an oximeter as was recommended and noticed today that her O2 sats became decreased to the 84% range. She came to the ED today with worsening cough, and new diarrhea. She was tachypneic. Chest x-ray shows bilateral fluffy infiltrates consistent with Covid pneumonia. Her oxygen saturation here is 88 to 89% on room air and she has been started on supplemental oxygen. She is being admitted to the Hospitalist service. - HOSPITAL COURSE Hospital Course: It was admitted and started on remdesivir and Decadron IV. She completed a regimen of remdesivir. Her oxygen requirements initially increase to a level of a high flow oxygen via nasal cannula then steadily improved such that by discharge she was breathing comfortably on room air with her oxygen saturation in the 94%. She was discharged home with a prescription of Decadron 6 mg p.o. daily for 5 more days. She was hyperglycemic during the hospital stay. Hemoglobin A1c was 9.9. She was diagnosed with diabetes mellitus type 2. While in the hospital she was treated with insulin. Upon discharge she was prescribed Metformin 500 mg p.o. twice daily. She is to establish care with a primary care physician who is expected to continue managing her diabetes. Metformin would steadily need to be titrated up as she tolerates. She was advised to mind her diet and start exercising. She expressed understanding. She was discharged in stable condition. - ALLERGIES Allergies/Adverse Reactions: Allergies Allergy/AdvReac Type Severity Reaction Status Date / Time codeine Allergy Hives Verified 02/06/21 17:34 - MEDICATIONS Home Medications: Ambulatory Orders Medication Instructions Recorded Confirmed Benzonatate [Tessalon] 200 mg PO QID PRN #20 cap 02/04/21 02/06/21 Dexamethasone [Decadron] 6 mg PO DAILY 5 Days #5 tablet 02/11/21 metFORMIN [Glucophage] 500 mg PO BIDWM 30 Days #60 tablet 02/11/21 - PHYSICAL EXAM AT DISCHARGE General Appearance: positive: No acute distress, Alert Eyes Bilateral: positive: PERRL, EOMI ENT: positive: No signs of dehydration Neck: positive: No JVD, Trachea midline Respiratory: positive: Chest non-tender, No respiratory distress, Other (Coarse breath sounds). negative: Wheezes, Rales, Rhonchi Cardiovascular: positive: Regular rate & rhythm, No murmur Abdomen: positive: Non-tender, No organomegaly, Nml bowel sounds, No distention. negative: Guarding, Rebound Skin: positive: Color nml, No rash, Warm, Dry Extremities: positive: Non-tender, Full ROM, Nml appearance, No pedal edema Neurologic/Psychiatric: positive: Oriented x3, Mood/affect nml - LABS Result Diagrams: 02/10/21 06:00 02/10/21 06:00 - TIME SPENT Time Spent in Discharge (Minutes): 25
[2021-02-11] MEDS: INSULIN ASPART 300 UNIT/3 ML PEN SUBQ SCH ×2 (08:00→11:58)
[2021-02-11] MEDS: INSULIN GLARGINE 300 UNIT/3 ML PEN SUBQ SCH (08:03)
[2021-02-11] MEDS: APIXABAN 5 MG TABLET PO SCH (10:43)
[2021-02-11] MEDS: DEXAMETHASONE 4 MG/ML VIAL IVP SCH (10:43)
[2021-02-11] MEDS: guaiFENesin 600 MG TABLET PO SCH (10:43)
[2021-02-11] MEDS: CHOLECALCIFEROL 25 MCG TABLET PO SCH (10:43)
[2021-02-11] MEDS: REMDESIVIR 100MG VIAL 100 MG in SODIUM CHLORIDE 0.9% 100ML 100 ML IV SCH (10:44)
[2021-02-11 13:06] VITALS: BP 104/66
== END 2021-02-11 13:30 | disposition home or self-care (01) | DRG 177 ==
LOC: ED 17:23 → MS2 20:42
PROVIDERS: ADMIT Internal Medicine; ATTEND Internal Medicine
PROC: 3E0333Z Introduction of Anti-inflammatory into Peripheral Vein, Percutaneous Approach (ICD-10-PCS; 2021-02-06)
PROC: XW033E5 Introduction of Remdesivir Anti-infective into Peripheral Vein, Percutaneous Approach, New Technology Group 5 (ICD-10-PCS; principal; 2021-02-07)
DX: U07.1 COVID-19 (principal); J12.82 Pneumonia due to coronavirus disease 2019; J96.01 Acute respiratory failure with hypoxia; E87.1 Hypo-osmolality and hyponatremia; E66.9 Obesity, unspecified; Z68.34 Body mass index [BMI] 34.0-34.9, adult; E11.65 Type 2 diabetes mellitus with hyperglycemia; R19.7 Diarrhea, unspecified; E87.6 Hypokalemia
CPT/HCPCS: 0202U; 36415; 71045; 80048; 80076; 82306; 83036; 83735; 85025; 85379; 93005; 96361; 96372; 96374; 99285; A9270; J1650; J1815

== ENCOUNTER 2021-05-17 15:32 | Outpatient (CLI) | payer MEDICAID ==
[2021-05-17 18:50] LABS: BASOPHILS % (AUTO) 0.3 %; EOSINOPHILS # (AUTO) 0.1 10^3/uL (0.0-0.7); EOSINOPHILS % (AUTO) 1.2 %; HCT - HEMATOCRIT 39.8 % (37.0-47.0); LYMPHOCYTES # (AUTO) 2.7 10^3/uL (1.5-3.5); LYMPHOCYTES % (AUTO) 29.3 %; MEAN CORPUSCULAR HEMOGLOBIN 31.5 pg (27.0-31.0); MEAN CORPUSCULAR HGB CONC 35.2 g/dL (32.0-36.0); MEAN CORPUSCULAR VOLUME 89.4 fL (81.0-99.0); MEAN PLATELET VOLUME 11.4 fL (7.9-10.8); MONOCYTES # (AUTO) 0.5 10^3/uL (0.0-1.0); MONOCYTES % (AUTO) 4.9 %; NEUTROPHILS # (AUTO) 5.9 10^3/uL (1.5-6.6); PLT - PLATELET COUNT 324 10^3/uL (130-450); RED BLOOD COUNT 4.45 10^6/uL (4.20-5.40); RED CELL DISTRIBUTION WIDTH 12.1 % (12.0-15.0); WHITE BLOOD COUNT 9.2 x10^3/uL (4.8-10.8)
[2021-05-17 19:09] LABS: CREATININE,URINE 55.5 mg/dL; MICROALBUM/CREATININE RATIO,UR 16.2 ug/mg (<30.0); MICROALBUMIN,URINE 0.9 mg/dL (0-300.0)
[2021-05-17 19:10] LABS: ALBUMIN 4.2 g/dL (3.2-5.5); ALBUMIN/GLOBULIN RATIO 1.3 (1.0-2.2); ALKALINE PHOSPHATASE 62 IU/L (42-121); ALT ALANINE AMINOTRANSFERASE 32 IU/L (10-60); AST ASPARTATE AMINOTRANSFERASE 22 IU/L (10-42); BILIRUBIN,TOTAL 0.6 mg/dL (0.2-1.0); BUN - BLOOD UREA NITROGEN 15 mg/dL (6-20); CALCIUM 9.3 mg/dL (8.5-10.3); CARBON DIOXIDE - CO2 23 mmol/L (21-32); CHLORIDE 101 mmol/L (101-111); CHOL/HDL RATIO 4.8 (<4.4); CHOLESTEROL 205 mg/dL; CREATININE 0.5 mg/dL (0.4-1.0); GFR - MDRD 140 (>89); GLUCOSE 278 mg/dL (70-100); HDL CHOLESTEROL 43 mg/dL; POTASSIUM 3.6 mmol/L (3.5-5.0); SODIUM 135 mmol/L (135-145); TOTAL PROTEIN 7.5 g/dL (6.7-8.2); TRIGLYCERIDES 564 mg/dL
[2021-05-17 19:20] LABS: THYROID STIMULATING HORMONE 0.89 uIU/mL (0.34-5.60)
[2021-05-17 19:43] LABS: LDL CHOLESTEROL,DIRECT 86 mg/dL
[2021-05-17 19:59] LABS: ESTIMATED AVERAGE GLUCOSE 229 mg/dL (70-100); HEMOGLOBIN A1c% 9.6 % (4.27-6.07)
[2021-05-19 14:56] LABS: NIL 0.02 IU/mL; TB1-NIL <0.00 IU/mL; TB2-NIL <0.00 IU/mL
== END 2021-05-17 15:33 | disposition home or self-care (01) ==
LOC: LAB.N 15:32
PROVIDERS: ATTEND Registered Nurse
DX: Z00.00 Encounter for general adult medical examination without abnormal findings (principal); E11.9 Type 2 diabetes mellitus without complications; Z13.29 Encounter for screening for other suspected endocrine disorder
CPT/HCPCS: 36415; 80050; 80061; 82043; 82570; 83036; 83721; 86480

== ENCOUNTER 2021-08-04 12:38 | Outpatient (CLI) | payer MEDICAID ==
[2021-08-04 14:55] LABS: CALCIUM 9.1 mg/dL (8.5-10.3); CREATININE 0.4 mg/dL (0.4-1.0); POTASSIUM 3.9 mmol/L (3.5-5.0)
[2021-08-04 20:31] LABS: ESTIMATED AVERAGE GLUCOSE 223 mg/dL (70-100); HEMOGLOBIN A1c% 9.4 % (4.27-6.07)
== END 2021-08-04 12:39 | disposition home or self-care (01) ==
LOC: LAB.N 12:38
PROVIDERS: ATTEND Registered Nurse
DX: E11.9 Type 2 diabetes mellitus without complications (principal)
CPT/HCPCS: 36415; 80048; 83036

== ENCOUNTER 2022-02-02 20:58 | Emergency (ER) | payer MEDICAID ==
[2022-02-02] MEDS ORDERED: CHERRY SYRUP 10 ML UDC PO ONE (21:57)
[2022-02-02] MEDS ORDERED: DEXAMETHASONE 10 MG/ML VIAL PO STA (21:57)
--- NOTE | 2022-02-02 21:59 | ED Physician Documentation ---
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 improves with mucinex, nyquil/dayquil. denies fevers. Review of Systems Ten Systems: 10 systems reviewed and negative Constitutional: reports: Chills, Myalgias, Fatigue Ears: denies: Ear pain Nose: reports: Rhinorrhea / runny nose, Congestion Throat: reports: Sore throat Cardiac: denies: Chest pain / pressure Respiratory: reports: Cough. 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 : None HEENT: None Psych: None Musculoskeletal: None Derm: None - Present Medications Home Medications: Ambulatory Orders Medication Instructions Recorded Confirmed metFORMIN [Glucophage] 500 mg PO BIDWM 30 Days #60 tablet 02/11/21 Oxymetazoline HCl [Afrin] 15 ml NS BID PRN 10 Days #15 ml 02/02/22 glyBURIDE [Glyburide] 5 mg PO DAILY 02/02/22 02/02/22 - Allergies Allergies/Adverse Reactions: Allergies Allergy/AdvReac Type Severity Reaction Status Date / Time codeine Allergy Hives Verified 02/02/22 21:20 - Social History Does the pt smoke?: No Smoking Status: Never smoker - POLST Patient has POLST: No PD ED PE NORMAL - Vitals Vital signs reviewed: Yes - General General: Alert and oriented X 3, No acute distress, Well developed/nourished - HEENT HEENT: Atraumatic, PERRL, EOMI, Ears normal, Moist mucous membranes, Pharynx benign, Other (clear rhinorrhea. mild oropharyngeal erythema) - Cardiac Cardiac: RRR - Respiratory Respiratory: No respiratory distress, Clear bilaterally - Abdomen Abdomen: Non tender, Non distended Results - Vitals Vitals: Vital Signs - 24 hr 02/02/22 02/02/22 21:16 23:36 Temperature 37.7 C Heart Rate 120 H 90 Respiratory 20 18 Rate Blood Pressure 138/91 H 106/67 O2 Saturation 97 98 Oxygen O2 Source Room air - Labs Labs: Laboratory Tests 02/02/22 22:16 Nasal Adenovirus (PCR) NOT DETECTED Nasal B. parapertussis DNA (PCR) NOT DETECTED Nasal Coronavir 229E PCR NOT DETECTED Nasal Coronavir HKU1 PCR NOT DETECTED Nasal Coronavir NL63 PCR NOT DETECTED Nasal Coronavir OC43 PCR NOT DETECTED Nasal Enterovir/Rhinovir PCR DETECTED A Nasal Influenza B PCR NOT DETECTED Nasal Influenza A PCR NOT DETECTED Nasal Parainfluen 1 PCR NOT DETECTED Nasal Parainfluen 2 PCR NOT DETECTED Nasal Parainfluen 3 PCR NOT DETECTED Nasal Parainfluen 4 PCR NOT DETECTED Nasal RSV (PCR) NOT DETECTED Nasal B.pertussis DNA PCR NOT DETECTED Nasal C.pneumoniae (PCR) NOT DETECTED Junior Human Metapneumo PCR NOT DETECTED Nasal M.pneumoniae (PCR) NOT DETECTED Nasal SARS-CoV-2 (PCR) NOT DETECTED PD MEDICAL DECISION MAKING - ED course ED course: 36yF p/w viral uri. CXR clear for pneumonia. given her prolonged course of viral symptoms I provided decadron treatment after discussing risks of hyperglycemia, mild to moderate swelling. plan to f/u with her pcp. return precautions given. Departure - Departure Disposition: Home, Self Care Clinical Impression: URI (upper respiratory infection) Condition: Stable Instructions: ED Viral Syndrome Prescriptions: Oxymetazoline HCl [Afrin] 15 ml NS BID PRN 10 Days #15 ml PRN Reason: Nasal Congestion Comments: You were seen in the ED for viral upper respiratory infection symptoms. A nose swab was sent for testing and the results should be back in a couple hours. A prescription for nasal spray was sent electronically to [email or web address] in [place]. Please follow up with your primary care provider and return to the ED for new or worsening symptoms or other concerns. Forms: Activity restrictions Discharge Date/Time: 02/02/22 23:54
[2022-02-02] MEDS ORDERED: ACETAMINOPHEN 325 MG TABLET PO STA (22:02)
--- NOTE | 2022-02-02 22:59 | XRAY Report ---
PROCEDURE: Chest 2 View X-Ray INDICATIONS: Cough, SOA TECHNIQUE: 2 views of the chest were acquired. COMPARISON: 02/06/2021 chest plain film FINDINGS: Surgical changes and devices: None. Lungs and pleura: No pleural effusions or pneumothorax. No acute pulmonary opacities. Mediastinum: Mediastinal contours are normal. Heart size is normal. There is aortic atherosclerosi s. Bones and chest wall: No suspicious bony abnormalities. There is thoracic spine disc degeneration. Soft tissues appear unremarkable. IMPRESSION: No pneumonia found, no pleural effusion identified. Reviewed by: Barrera Lara MD on 02/02/2022 10:57 PM [facility] Approved by: Barrera Lara MD on 02/02/2022 10:57 PM [facility] Station ID: [id number]
[2022-02-02 23:37] VITALS: BP 106/67
[2022-02-02 23:40] LABS: B. PARAPERTUSSIS- RESP PCR PAN NOT DETECTED; B. PERTUSSIS- RESP PCR PANEL NOT DETECTED; C. PNEUMONIAE- RESP PCR PANEL NOT DETECTED; CORONAVIRUS 229E-RESP PCR NOT DETECTED; CORONAVIRUS HKU1-RESP PCR NOT DETECTED; CORONAVIRUS NL63-RESP PCR NOT DETECTED; CORONAVIRUS OC43-RESP PCR NOT DETECTED; HUMAN METAPNEUMOVIRUS NOT DETECTED; INFLUENZA A- RESP PCR PANEL NOT DETECTED; INFLUENZA B - RESP PCR PANEL NOT DETECTED; M. PNEUMONIAE- RESP PCR PANEL NOT DETECTED; PARAINFLUENZA VIRUS 1 NOT DETECTED; PARAINFLUENZA VIRUS 2 NOT DETECTED; PARAINFLUENZA VIRUS 3 NOT DETECTED; PARAINFLUENZA VIRUS 4 NOT DETECTED; RHINOVIRUS/ENTEROVIRUS DETECTED; RSV- RESP PCR PANEL NOT DETECTED; SARS-CoV-2 -RESP PCR PANEL NOT DETECTED
== END 2022-02-02 23:54 | disposition home or self-care (01) ==
LOC: ED 20:58
DX: J06.9 Acute upper respiratory infection, unspecified (principal)
CPT/HCPCS: 71046; 87633; 99282; 99284; A9270

== ENCOUNTER 2022-03-30 11:25 | Outpatient (CLI) | payer MEDICAID ==
[2022-03-30 18:57] LABS: BASOPHILS % (AUTO) 0.3 %; EOSINOPHILS # (AUTO) 0.1 10^3/uL (0.0-0.7); EOSINOPHILS % (AUTO) 0.8 %; HCT - HEMATOCRIT 42.6 % (37.0-47.0); HGB - HEMOGLOBIN 14.2 g/dL (12.0-16.0); LYMPHOCYTES # (AUTO) 2.5 10^3/uL (1.5-3.5); LYMPHOCYTES % (AUTO) 28.2 %; MEAN CORPUSCULAR HEMOGLOBIN 30.7 pg (27.0-31.0); MEAN CORPUSCULAR HGB CONC 33.3 g/dL (32.0-36.0); MEAN PLATELET VOLUME 11.1 fL (7.9-10.8); MONOCYTES # (AUTO) 0.5 10^3/uL (0.0-1.0); MONOCYTES % (AUTO) 5.7 %; NEUTROPHILS # (AUTO) 5.7 10^3/uL (1.5-6.6); NEUTROPHILS % (AUTO) 64.8 %; PLT - PLATELET COUNT 309 10^3/uL (130-450); RED BLOOD COUNT 4.63 10^6/uL (4.20-5.40); RED CELL DISTRIBUTION WIDTH 12.9 % (12.0-15.0); WHITE BLOOD COUNT 8.8 x10^3/uL (4.8-10.8)
[2022-03-30 19:14] LABS: ALBUMIN 4.5 g/dL (3.2-5.5); ALBUMIN/GLOBULIN RATIO 1.3 (1.0-2.2); ALKALINE PHOSPHATASE 56 IU/L (42-121); ALT ALANINE AMINOTRANSFERASE 27 IU/L (10-60); AST ASPARTATE AMINOTRANSFERASE 23 IU/L (10-42); BILIRUBIN,TOTAL 1.1 mg/dL (0.2-1.0); BUN - BLOOD UREA NITROGEN 15 mg/dL (6-20); CALCIUM 9.5 mg/dL (8.5-10.3); CARBON DIOXIDE - CO2 23 mmol/L (21-32); CHLORIDE 105 mmol/L (101-111); CHOL/HDL RATIO 4.3 (<4.4); CHOLESTEROL 198 mg/dL; CREATININE 0.5 mg/dL (0.4-1.0); GFR - MDRD 140 (>89); GLUCOSE 213 mg/dL (70-100); HDL CHOLESTEROL 46 mg/dL; LDL CHOLESTEROL,CALCULATED 112 mg/dL; LDL/HDL RATIO 2.4 (<4.4); POTASSIUM 3.9 mmol/L (3.5-5.0); SODIUM 138 mmol/L (135-145); TRIGLYCERIDES 200 mg/dL; VLDL CHOLESTEROL 40 mg/dL
[2022-03-30 19:22] LABS: THYROID STIMULATING HORMONE 0.61 uIU/mL (0.34-5.60)
[2022-03-30 19:45] LABS: CREATININE,URINE 266.8 mg/dL; MICROALBUM/CREATININE RATIO,UR 9.7 ug/mg (<30.0); MICROALBUMIN,URINE 2.6 mg/dL (0-300.0)
[2022-03-30 21:06] LABS: ESTIMATED AVERAGE GLUCOSE 194 mg/dL (70-100); HEMOGLOBIN A1c% 8.4 % (4.27-6.07)
== END 2022-03-30 11:26 | disposition home or self-care (01) ==
LOC: LAB.N 11:25
PROVIDERS: ATTEND Registered Nurse
DX: E78.5 Hyperlipidemia, unspecified (principal); Z79.899 Other long term (current) drug therapy; E11.8 Type 2 diabetes mellitus with unspecified complications; Z13.29 Encounter for screening for other suspected endocrine disorder
CPT/HCPCS: 36415; 80050; 80061; 82043; 82570; 83036; 83721

== ENCOUNTER 2023-08-29 21:53 | Outpatient (CLI) | payer MEDICAID ==
[2023-08-29 22:19] VITALS: BP 130/86; O2SAT 95
--- NOTE | 2023-08-31 10:27 | PROCEDURE REPORT ---
- HPI Diagnosis/Indication for NST: Other (DM2) Current EDU 10/19/23 Gestation 32 Weeks and 5 Days 2 Para 0 Vital Signs Temperature 97.7 F 08/29/23 22:02 Temperature 97.7 F 08/29/23 22:16 Heart Rate 120 H 08/29/23 22:16 Respiratory Rate 16 08/29/23 22:16 Blood Pressure 130/86 H 08/29/23 22:16 O2 Saturation 95 08/29/23 22:16 If not protocol: Oxygen Flow, liters/minute - NST Procedure NST Procedure Start Date 08/29/23 Start Time 22:08 Stop Time 22:48 Vibroacoustic Stimulation Used No Patient States Movement Yes EFM: 140s, moderate variability, positive 15x15 accelerations, no decelerations [place]: no contractions Cat 1/NST reactive - Results and Plan Plan: 37yo at 32.5w with T2DM, uncontrolled - NST reactive - Glucose 283, and she has continuous glucose monitor with elevated readings - After NST she was sent to ED for evaluation for DKA and monitoring - She has an initial appt 09/[facility] at [facility]
== END 2023-08-29 22:53 | disposition home or self-care (01) ==
LOC: WFO 21:53 → FBP 21:55 → WFO 22:53
PROVIDERS: ATTEND Obstetrics & Gynecology
DX: O24.113 Pre-existing type 2 diabetes mellitus, in pregnancy, third trimester (principal); E11.65 Type 2 diabetes mellitus with hyperglycemia; Z3A.32 32 weeks gestation of pregnancy; Z79.4 Long term (current) use of insulin
CPT/HCPCS: 36415; 59025; 80048; 81001; 81003; 82009; 85025; 87086; 96360; 99213; 99284

== ENCOUNTER 2023-08-29 23:09 | Emergency (ER) | payer MEDICAID ==
[2023-08-29 23:31] VITALS: O2SAT 100
[2023-08-29 23:50] LABS: BASOPHILS % (AUTO) 0.2 %; EOSINOPHILS # (AUTO) 0.1 10^3/uL (0.0-0.7); EOSINOPHILS % (AUTO) 0.6 %; HCT - HEMATOCRIT 34.4 % (37.0-47.0); HGB - HEMOGLOBIN 11.5 g/dL (12.0-16.0); LYMPHOCYTES # (AUTO) 2.9 10^3/uL (1.5-3.5); LYMPHOCYTES % (AUTO) 26.7 %; MEAN CORPUSCULAR HEMOGLOBIN 30.5 pg (27.0-31.0); MEAN CORPUSCULAR HGB CONC 33.4 g/dL (32.0-36.0); MEAN CORPUSCULAR VOLUME 91.2 fL (81.0-99.0); MEAN PLATELET VOLUME 10.5 fL (7.9-10.8); MONOCYTES # (AUTO) 0.7 10^3/uL (0.0-1.0); MONOCYTES % (AUTO) 6.5 %; NEUTROPHILS # (AUTO) 7.1 10^3/uL (1.5-6.6); NEUTROPHILS % (AUTO) 65.5 %; PLT - PLATELET COUNT 295 10^3/uL (130-450); RED BLOOD COUNT 3.77 10^6/uL (4.20-5.40); RED CELL DISTRIBUTION WIDTH 13.1 % (12.0-15.0); WHITE BLOOD COUNT 10.9 x10^3/uL (4.8-10.8)
[2023-08-29 23:56] LABS: BILIRUBIN,URINE NEGATIVE (NEGATIVE); GLUCOSE, URINE (UA) >=1000 mg/dL (NEGATIVE); KETONES,URINE (UA) TRACE mg/dL (NEGATIVE); LEUKOCYTE ESTERASE, URINE NEGATIVE (NEGATIVE); NITRITE,URINE NEGATIVE (NEGATIVE); OCCULT BLOOD,URINE NEGATIVE (NEGATIVE); PROTEIN,URINE NEGATIVE (NEGATIVE); UROBILINOGEN,URINE 0.2 (NORMAL) E.U./dL (NORMAL)
[2023-08-29 23:57] LABS: CLARITY,URINE CLEAR (CLEAR)
[2023-08-30 00:08] LABS: BUN - BLOOD UREA NITROGEN 12 mg/dL (6-20); CALCIUM 9.2 mg/dL (8.5-10.3); CARBON DIOXIDE - CO2 19 mmol/L (21-32); CHLORIDE 105 mmol/L (101-111); CREATININE 0.4 mg/dL (0.6-1.3); GFR - MDRD 180 (>89); GLUCOSE 268 mg/dL (74-104); POTASSIUM 3.8 mmol/L (3.5-4.5); SODIUM 133 mmol/L (135-145)
[2023-08-30] MEDS: INSULIN REGULAR, HUMAN 300 UNIT/3 ML PEN IVP STA (00:11)
[2023-08-30] MEDS: SODIUM CHLORIDE 0.9% 1,000 ML IV STA (00:12)
[2023-08-30 00:19] LABS: KETONES, SERUM (ACETEST) NEGATIVE (NEGATIVE)
--- NOTE | 2023-08-30 00:26 | ED Physician Documentation ---
History of Present Illness - Stated complaint Stated Complaint: HIGH BLOOD SUGAR - Chief complaint Chief Complaint: General - History obtained from History obtained from: Patient - Additonal information Additional information: HPI from patient. Patient was initially evaluated [facility] and cleared from the ob standpoint for ED evaluation. Patient is 32 w 5 d . This is her second , with the first ending in spontaneous ab. Patient's chief c/o is high blood sugars. She is diabetic and uses both levemir and lispro (see below), and has not missed any doses recently nor undertaken any dietary indescretions regarding diabetic diet (she says she has been hypervigilant in this regard because she is ). She moved from [place] to [facility] a little over one week ago. She has an internal/implanted glucose monitor; over the past few weeks, she has noticed a gradual but steady increase in her BS readings. She has seen her [employer] back in [place] for this a few times and was told she would likely need increasing insulin doses as the progresses. She says she has already had at least two visits to [facility] during which she was told to increase all of her doses of insulin by 2-4 units. Her last such visit was 08/21 (shortly before leaving [place] for [place]), and she was again told to increase her Levemir from 28 units to 32 u (breakfast), from 18 u to 22 u (dinner), and Lispro from 15 u --> 18u breakfast, 18u-->20 u lunch, 23u-->26 units dinner. Over the past few days, she notes afternoon and evening readings in the mid /upper 200s and as high as lower 300s. She says morning pre-breakfast readings have been 130s-150s (she says she was told her fasting blood sugars in the morning before eating should be as low as 90, per patient), and that her post- prandial morning readings run 150s-160s. Denies fever, cough, chills. Has had mild AM nausea past 3-4 days without vomiting. Mild LAINEZ which she says she was told was not unusual at this stage of . Denies VACA, visual changes, abdominal pain, vaginal bleeding, peripheral swelling. Has not noticed any decrease in movement of the fetus. 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 : None HEENT: None Psych: None Musculoskeletal: None Derm: None - Past Surgical History Past Surgical History: No - Present Medications Home Medications: Ambulatory Orders Medication Instructions Recorded Confirmed metFORMIN [Glucophage] 500 mg PO BIDWM 30 Days #60 tablet 02/11/21 08/29/23 Oxymetazoline HCl [Afrin] 15 ml NS BID PRN 10 Days #15 ml 02/02/22 08/29/23 glyBURIDE [Glyburide] 5 mg PO DAILY 02/02/22 08/29/23 Benzonatate [Tessalon] 200 mg PO TID PRN #20 cap 02/06/22 08/29/23 Insulin Detemir [Levemir Flexpen] 22 unit SUBQ HS 08/29/23 08/29/23 Insulin Detemir [Levemir Flexpen] 32 units SUBQ DAILY 08/29/23 08/29/23 Insulin Lispro [Humalog Kwikpen HS 08/29/23 U-100] - Allergies Allergies/Adverse Reactions: Allergies Allergy/AdvReac Type Severity Reaction Status Date / Time codeine Allergy Hives Verified 08/30/23 00:15 - Social History Does the pt smoke?: No Smoking Status: Never smoker Does the pt drink ETOH?: No Does the pt have substance abuse?: No - Immunizations Immunizations are current?: Yes - POLST Patient has POLST: No PD ED PE NORMAL - Vitals Vital signs reviewed: Yes - General General: Alert and oriented X 3, No acute distress, Well developed/nourished - HEENT HEENT: Moist mucous membranes - Cardiac Cardiac: RRR, No murmur - Respiratory Respiratory: No respiratory distress, Clear bilaterally - Abdomen Abdomen: Soft, Non tender, Other (abdominal distention appropriate for 32w5d ) - Extremities Extremities: No edema - Neuro Neuro: Alert and oriented X 3 Results - Vitals Vitals: Oxygen O2 Source Room air - Labs Labs: Laboratory Tests 08/29/23 08/29/23 08/29/23 23:46 23:47 23:47 WBC 10.9 H RBC 3.77 L Hgb 11.5 L Hct 34.4 L MCV 91.2 MCH 30.5 MCHC 33.4 RDW 13.1 Plt Count 295 MPV 10.5 Neut # (Auto) 7.1 H Lymph # (Auto) 2.9 [place] # (Auto) 0.7 Eos # (Auto) 0.1 Baso # (Auto) 0.0 Absolute Nucleated RBC 0.00 Nucleated RBC % 0.0 Sodium 133 L Potassium 3.8 Chloride 105 Carbon Dioxide 19 L Anion Gap 9.0 BUN 12 Creatinine 0.4 L Estimated GFR (MDRD) 180 Glucose 268 H POC Whole Bld Glucose Calcium 9.2 Urine Color YELLOW Urine Clarity CLEAR Urine pH 6.0 Ur Specific [place] 1.020 Urine Protein NEGATIVE Urine Glucose (UA) >=1000 H Urine Ketones TRACE Urine Occult Blood NEGATIVE Urine Nitrite NEGATIVE Urine Bilirubin NEGATIVE Urine Urobilinogen 0.2 (NORMAL) Ur Leukocyte Esterase NEGATIVE Ur Microscopic Review NOT INDICATED Urine Culture Comments NOT INDICATED Serum Ketones NEGATIVE 08/30/23 00:59 WBC RBC Hgb Hct MCV MCH MCHC RDW Plt Count MPV Neut # (Auto) Lymph # (Auto) [place] # (Auto) Eos # (Auto) Baso # (Auto) Absolute Nucleated RBC Nucleated RBC % Sodium Potassium Chloride Carbon Dioxide Anion Gap BUN Creatinine Estimated GFR (MDRD) Glucose POC Whole Bld Glucose 166 H Calcium Urine Color Urine Clarity Urine pH Ur Specific [place] Urine Protein Urine Glucose (UA) Urine Ketones Urine Occult Blood Urine Nitrite Urine Bilirubin Urine Urobilinogen Ur Leukocyte Esterase Ur Microscopic Review Urine Culture Comments Serum Ketones PD Medical Decision Making - ED course Complexity details: reviewed results, re-evaluated patient, considered differential, d/w patient ED course: No concerning findings on blood tests. Minimal leukocytosis (wbc 10.9), hgb 11.5 (mildly below normal range). Mild hyponatremia (133). Serum ketones NEGATIVE. UA normal except for >1,000 glucose. Serum glucose 268, but after 6 u regular insulin IV in ED, recheck is 166. Also given 1 liter NS IV during ED stay. Results d/w patient. Having ruled out DKA, her high blood sugars do not represent a medical emergency and can be further addressed in follow-up; she has an appointment with her local PCP this coming Friday as well as an establishing appointment with local [facility] (Dr. Cruz) this . I discussed this case with Dr. Roth (on-call [facility] for [facility]); she recommends increasing patient's dosing (both doses of Levemir and all three doses of lispro) by 2-4 units/dose. I relayed this to patient and for purposes of clarity, I told her to simply increase all five doses (2 levemir, 3 lispro) by 2 units/dose (and I wrote out what her doses should now be on d/c instructions). Return precautions reviewed. Departure - Departure Disposition: Home, Self Care Clinical Impression: Hyperglycemia in Condition: Good Instructions: ED Hyperglycemia Diabetic Comments: Aside from high blood sugar readings tonight, there were no other concerning findings on the blood tests performed in the emergency department. Similarly, the urinalysis had glucose in the sample (expected with high blood sugar), but no evidence of infection. Both the urine and blood were NEGATIVE for ketones (ketones in the blood are most commonly a result of diabetic ketoacidosis, a concerning diagnosis caused by particularly poorly controlled blood sugar; thus, a negative result is good). I discussed your case with the on-call [employer] for [facility] (Dr. Roth, who works with Dr. Cruz). She recommends increasing all of your doses of insulin by 2 units. Thus, you would take: LEVEMIR 34 units with breakfast, 24 units with dinner and LISPRO 20 units breakfast, 22 units lunch, 28 units dinner. Discharge Date/Time: 08/30/23 02:34
[2023-08-30 02:39] VITALS: BP 114/75
== END 2023-08-30 02:34 | disposition home or self-care (01) ==
LOC: ED 23:09
DX: O24.013 Pre-existing type 1 diabetes mellitus, in pregnancy, third trimester (principal); E10.65 Type 1 diabetes mellitus with hyperglycemia; Z3A.32 32 weeks gestation of pregnancy; Z79.4 Long term (current) use of insulin
CPT/HCPCS: 36415; 80048; 81001; 81003; 82009; 85025; 87086; 96360; 99284

== ENCOUNTER 2023-09-12 10:09 | Outpatient (CLI) | payer MEDICAID ==
[2023-09-12 10:40] VITALS: BP 123/84
--- NOTE | 2023-09-12 20:39 | PROCEDURE REPORT ---
- HPI Diagnosis/Indication for NST: Pre- Diabetes at 34 weeks. Current EDU 10/19/23 Gestation 34 Weeks and 5 Days 2 Para 1 Vital Signs Temperature 97.5 F L 09/12/23 10:27 Heart Rate 09/12/23 10:27 Respiratory Rate 09/12/23 10:27 Blood Pressure 123/84 H 09/12/23 10:27 Temperature 97.5 F L 09/12/23 10:27 Heart Rate 09/12/23 10:27 Respiratory Rate 09/12/23 10:27 Blood Pressure 123/84 H 09/12/23 10:27 O2 Saturation If not protocol: Oxygen Flow, liters/minute - NST Procedure NST Procedure Start Date 09/12/23 Start Time 10:40 Stop Time 11:05 Vibroacoustic Stimulation Used No Patient States Movement Yes - Results and Plan Findings/Impression: diabetic on insulin here for NST.34 wks Reactive for of 32 weeks gestation or more. NST tracing contains at least two heart rate accelerations that are at least 15 beats per minute above the baseline rate and lasting at least 15 seconds from onset to return to baseline within a twenty minute period. Plan: care as scheduled.
== END 2023-09-12 11:21 | disposition home or self-care (01) ==
LOC: WFO 10:09 → FBP 10:11 → WFO 11:21
PROVIDERS: ATTEND Obstetrics & Gynecology
DX: O24.313 Unspecified pre-existing diabetes mellitus in pregnancy, third trimester (principal); Z3A.34 34 weeks gestation of pregnancy; Z79.4 Long term (current) use of insulin; O09.893 Supervision of other high risk pregnancies, third trimester
CPT/HCPCS: 36415; 59025; 80053; 81599; 82306; 82570; 83036; 84156; 84439; 84443; 85027; 86787

== ENCOUNTER 2023-09-12 10:42 | Outpatient (CLI) | payer MEDICAID ==
[2023-09-12 11:02] LABS: HGB - HEMOGLOBIN 11.3 g/dL (12.0-16.0); MEAN CORPUSCULAR HEMOGLOBIN 30.1 pg (27.0-31.0); MEAN CORPUSCULAR HGB CONC 33.2 g/dL (32.0-36.0); MEAN CORPUSCULAR VOLUME 90.4 fL (81.0-99.0); MEAN PLATELET VOLUME 10.5 fL (7.9-10.8); RED BLOOD COUNT 3.76 10^6/uL (4.20-5.40); RED CELL DISTRIBUTION WIDTH 13.1 % (12.0-15.0); WHITE BLOOD COUNT 10.8 x10^3/uL (4.8-10.8)
[2023-09-12 11:16] LABS: ALBUMIN 3.1 g/dL (3.2-5.5); ALBUMIN/GLOBULIN RATIO 1.1 (1.0-2.2); BILIRUBIN,TOTAL 0.3 mg/dL (0.2-1.0); CALCIUM 9.3 mg/dL (8.5-10.3); CREATININE 0.4 mg/dL (0.6-1.3)
[2023-09-12 11:17] LABS: CREATININE,URINE 120.6 mg/dL; PROTEIN/CREATININE RATIO,URINE 0.2 (<=0.2)
[2023-09-12 11:29] LABS: THYROID STIMULATING HORMONE 0.01 uIU/mL (0.34-5.60)
[2023-09-12 11:54] LABS: ESTIMATED AVERAGE GLUCOSE 151 mg/dL (70-100); HEMOGLOBIN A1c% 6.9 % (4.27-6.07)
== END 2023-09-12 10:43 | disposition home or self-care (01) ==
LOC: LAB 10:42
PROVIDERS: ATTEND Obstetrics & Gynecology
DX: O09.893 Supervision of other high risk pregnancies, third trimester (principal); O24.913 Unspecified diabetes mellitus in pregnancy, third trimester
CPT/HCPCS: 36415; 80053; 81599; 82306; 82570; 83036; 84156; 84439; 84443; 85027

== ENCOUNTER 2023-09-26 10:21 | Outpatient (CLI) | payer MEDICAID ==
[2023-09-26 10:52] LABS: BASOPHILS % (AUTO) 0.1 %; EOSINOPHILS # (AUTO) 0.1 10^3/uL (0.0-0.7); EOSINOPHILS % (AUTO) 0.6 %; HCT - HEMATOCRIT 32.6 % (37.0-47.0); HGB - HEMOGLOBIN 10.7 g/dL (12.0-16.0); LYMPHOCYTES # (AUTO) 2.4 10^3/uL (1.5-3.5); LYMPHOCYTES % (AUTO) 25.2 %; MEAN CORPUSCULAR HEMOGLOBIN 29.6 pg (27.0-31.0); MEAN CORPUSCULAR HGB CONC 32.8 g/dL (32.0-36.0); MEAN CORPUSCULAR VOLUME 90.1 fL (81.0-99.0); MEAN PLATELET VOLUME 10.4 fL (7.9-10.8); MONOCYTES # (AUTO) 0.6 10^3/uL (0.0-1.0); MONOCYTES % (AUTO) 6.3 %; NEUTROPHILS # (AUTO) 6.3 10^3/uL (1.5-6.6); NEUTROPHILS % (AUTO) 67.6 %; PLT - PLATELET COUNT 266 10^3/uL (130-450); RED BLOOD COUNT 3.62 10^6/uL (4.20-5.40); RED CELL DISTRIBUTION WIDTH 12.8 % (12.0-15.0); WHITE BLOOD COUNT 9.3 x10^3/uL (4.8-10.8)
[2023-09-26 11:13] LABS: ALBUMIN/GLOBULIN RATIO 1.1 (1.0-2.2); BILIRUBIN,TOTAL 0.3 mg/dL (0.2-1.0); CREATININE 0.4 mg/dL (0.6-1.3); POTASSIUM 3.8 mmol/L (3.5-4.5); PROTEIN/CREATININE RATIO,URINE 0.4 (<=0.2); TOTAL PROTEIN 5.8 g/dL (6.4-8.9)
[2023-09-26 11:49] VITALS: BP 124/85
[2023-09-26] MEDS: LABETALOL 100 MG TABLET PO SCH (11:52)
[2023-09-26 11:53] LABS: ESTIMATED AVERAGE GLUCOSE 148 mg/dL (70-100); HEMOGLOBIN A1c% 6.8 % (4.27-6.07)
--- NOTE | 2023-09-26 12:06 | PROVIDER PROGRESS NOTE ---
- HPI Chief Complaint: Hypertension/PIH Current : Current EDU 10/19/23 Gestation 36 Weeks and 5 Days 2 Para 0 Vital Signs Temperature 97.7 F 09/26/23 10:39 Heart Rate 79 09/26/23 10:39 Respiratory Rate 16 09/26/23 10:39 Blood Pressure 138/92 H 09/26/23 10:39 Temperature 97.7 F 09/26/23 10:39 Heart Rate 79 09/26/23 10:39 Respiratory Rate 16 09/26/23 10:39 Blood Pressure 124/85 H 09/26/23 11:44 O2 Saturation If not protocol: Oxygen Flow, liters/minute - Procedures OB Procedure Performed: NST Diagnosis/Indication for NST: Gestational Diabetes NST Procedure: NST Procedure Start Date 09/26/23 Start Time 10:36 Stop Time 11:32 Vibroacoustic Stimulation Used No Patient States Movement Yes EFM: 140s, moderate variability, positive 15x15 accelerations, no decelerations [place]: no contractions NST reactive/Cat 1 Performed and read 09/26/23 Service Date of procedure: 09/26/23 - Plan Plan: 38yo at 36.5w sent from office visit for preeclampsia evaluation as her BP 136/90. She also was scheduled for her routine NST today. Occasional headaches, none currently. Denies visual changes, SOB, abdominal pain. No contractions, LOF, VB. Good FM. She was referred to for uncontrolled T2DM treated with insulin, BMI 44 for consultation and delivery at . She has an appointment 3d Friday09/29/23. BP 138/92 HR 79 GEN: NAD CV: Regular rate Resp: Breathing unlabored Abd: soft, nt Ext: +2 NST reactive Serum labs benign. PCR 0.4 38yo at 36.5w with preeclampsia - Keep office visit 09/28. Labetalol 200mg given in triage. Started on labetalol 200mg BID. Preeclampsia precautions reviewed. Bring personal bag to in case of admission following office visit. - Discharge to home, plan to follow up .
== END 2023-09-26 12:05 | disposition home or self-care (01) ==
LOC: WFO 10:21 → FBP 10:21 → WFO 12:05
PROVIDERS: ATTEND Obstetrics & Gynecology
DX: O14.93 Unspecified pre-eclampsia, third trimester (principal); O24.414 Gestational diabetes mellitus in pregnancy, insulin controlled; Z3A.36 36 weeks gestation of pregnancy; O09.893 Supervision of other high risk pregnancies, third trimester
CPT/HCPCS: 36415; 59025; 76816; 80053; 82570; 83036; 84156; 85025; 87081; 87181; 87797; 99213; A9270; 99215

== ENCOUNTER 2023-09-26 15:31 | Outpatient (CLI) | payer MEDICAID | END 2023-09-26 15:32 | disposition home or self-care (01) | LOC: LAB.WC 15:31 | PROVIDERS: ATTEND Obstetrics & Gynecology | DX: Z36.85 Encounter for antenatal screening for Streptococcus B (principal) | CPT/HCPCS: 87081; 87797 ==